=== PATIENT | female | born 1955 | race Caucasian/White ===

== ENCOUNTER → 2016-05-18 | Outpatient (CLI) | payer OTHER ==
--- NOTE | 2016-05-18 09:49 | BD ---
EXAMINATION TYPE: MG DEXA axial skeleton. DATE OF EXAM: 05/18/2016 8:38 AM CLINICAL HISTORY: Height: 63.5 Weight: 145 FRAX RISK QUESTIONS: Alcohol (3 or more units per day): no Family History (Parent hip fracture): no Glucocorticoids (More than 3mos): no (Ex: prednisone, prednisolone, methylprednisolone, dexamethasone, and hydrocortisone). History of Fracture in Adulthood: no Secondary Osteoporosis: 1. Type 1 Diabetes: no 2. Hyperthyroidism: no 3. Menopause before 45: no 4. Malnutrition: no 5. Chronic liver disease: no Rheumatoid Arthritis: no Current Tobacco Use: yes RISK FACTORS HISTORY OF: History of Fracture: no Family History of Osteoporosis: unsure Drink Alcohol: socially Active: yes Diet low in dairy products/other sources of calcium: no Postmenopausal woman: yes Take estrogen and/or progesterone medications: no Lost more than 2 inches in height since high school: no Hyperparathyroidism: no Adrenal Insufficiency: no MEDICATIONS: Prednisone or other steroids: no Thyroid Medications: no Osteoporosis Medications: no EXAM MEASUREMENTS: Bone mineral densitometry was performed using the Fosub[employer] System. Bone mineral density as measured about the Lumbar spine is: ----- L1-L4(G/cm2): 0.977 T Score Values are as follows: ----- L2: -2.5 ----- L3: -1.0 ----- L4: -1.7 ----- L1-L4: -1.7 Bone mineral density not previously done at this facility Bone mineral density about the R hip (g/cm2): 0.769 Bone mineral density about the L hip (g/cm2): 0.779 T Score values are as follows: -----R Neck: -1.9 -----L Neck: -1.9 -----R Intertrochanter: -1.6 -----L Intertrochanter: -1.5 Bone mineral density not previously done at this facility IMPRESSION: Normal (Values between +1 and -1 indicate normal bone mass) L3 Osteopenia (T Score between -2.5 and -1 as noted by T score values L2, L4 & Bilateral Hips There is slightly increased risk of fracture and the patient may be considered for treatment. Re-Screen 1-2 years. NOTE: T-SCORE=SD OF THE YOUNG ADULT MEAN.
--- NOTE | 2016-05-24 09:51 | MM ---
Reason for exam: screening (asymptomatic). Last mammogram was performed 1 year and 2 months ago. History: Patient is postmenopausal and history of other cancer. Benign excisional biopsy of the right breast, 2014. Physical Findings: A clinical breast exam by your physician is recommended on an annual basis and results should be correlated with mammographic findings. MG Screening Mammo w CAD Bilateral CC and MLO view(s) were taken. Prior study comparison: March 04, 2015, mammogram, performed at [facility]. There are scattered fibroglandular densities. There is no discrete abnormality. No significant changes when compared with prior studies. ASSESSMENT: Negative, BI-RAD 1 RECOMMENDATION: Routine screening mammogram of both breasts in 1 year.
== END | disposition home or self-care (01) ==
LOC: RADMAMWWP 07:57
PROVIDERS: ATTEND Family Medicine
DX: Z12.31 Encounter for screening mammogram for malignant neoplasm of breast (principal); M85.852 Other specified disorders of bone density and structure, left thigh; M85.851 Other specified disorders of bone density and structure, right thigh; M85.88 Other specified disorders of bone density and structure, other site
CPT/HCPCS: 77080; G0202

== ENCOUNTER → 2016-07-05 | Outpatient (CLI) | payer OTHER ==
[2016-07-05 17:16] LABS: Blood Urea Nitrogen 14 mg/dL (7-17); Non-African American GFR(MDRD) 54 (>60 ml/min/1.73 sqM)
--- NOTE | 2016-07-06 09:18 | CT ---
EXAMINATION TYPE: CT ChestAbdPelvis w con DATE OF EXAM: 07/05/2016 6:45 PM INDICATION: Recent diagnosis of bladder cancer. COMPARISON: 03/29/2016 CT DLP: 1852.00 mGycm CONTRAST: Performed with Oral Contrast and with IV Contrast, patient injected with 80 mL of Visipaque 320. TECHNIQUE: Axial images at 5 mm thick sections. Reconstructed images in the coronal plane. Delayed images through the kidneys. FINDINGS: CT CHEST: Portion of the thyroid visualized is normal. No suspicious lung nodules or focal infiltrates are present. No enlarged mediastinal or hilar adenopathy is evident. The ascending aorta diameter at the level of the main pulmonary artery is 3.0 cm. The main pulmonary artery diameter at the bifurcation is 2.[address] ABDOMEN: Liver: Normal Spleen: Normal Pancreas: Atrophic. Adrenal glands: The adrenal glands are normal. Gallbladder: Normal . The common bile duct is dilated at 1.1 cm. Normal is less than 0.6 cm. No susp icious abnormality at the head of the pancreas is identified. Consider additional evaluation with ult rasound with attention to the head of the pancreas and the gallbladder. Kidneys: No masses are evident. No hydronephrosis is present. No cysts are present. Aorta: Vascular calcification is within the aorta. Inferior vena cava: Normal. CT PELVIS: Loops of bowel within the abdomen and pelvis are normal. There are loops of bowel which are incom pletely distended or lack oral contrast limiting their evaluation. Appendix: Not visualized Urinary bladder: Decompressed. There is irregular wall thickening. Small amount of free air is presen t within urinary bladder. Findings can be compatible with the patient's reported urinary bladder can er. Genitourinary structures: Uterus is normal. Adnexal regions are unremarkable. Osseous structures: No suspicious lytic or sclerotic lesions. IMPRESSIONS: 1. Irregular urinary bladder compatible with the patient's reported bladder cancer. 2. There is a dilated common bile duct 1.1 cm. Consider ultrasound for additional evaluation.
== END | disposition home or self-care (01) ==
LOC: RADCTMAIN 16:39
PROVIDERS: ATTEND Urology
DX: C67.9 Malignant neoplasm of bladder, unspecified (principal)
CPT/HCPCS: 82565; 84520; 71260; 74177; 36415; Q9967

== ENCOUNTER → 2016-07-12 | Outpatient (CLI) | payer OTHER ==
--- NOTE | 2016-07-12 15:08 | US ---
EXAMINATION TYPE: US abdomen limited DATE OF EXAM: 07/12/2016 2:56 PM COMPARISON: CT cap July 05, 2016 CLINICAL HISTORY: 10.11 RUQ Pain R10.2Pelvic Pain,K85.90 Pancreatitis. Abdominal pain, getting worse, history of bladder cancer EXAM MEASUREMENTS: Liver Length: 13.3 cm Gallbladder Wall: 0.3 cm CBD: 0.8 cm Right Kidney: 9.9 x 4.3 x 4.1 cm TECHNOLOGIST IMPRESSION: Pancreas: limited evaluation due to overlying bowel content Liver: small cystic areas noted, largest = 0.6cm Gallbladder: sludge with possible tiny stones Evidence for sonographic Finnegan's sign: Yes CBD: dilated Right Kidney: echogenic, somewhat lobulated, limited evaluation of lower pole due to overlying bowel Visualized pancreas is unremarkable but distal body and tail are obscured by overlying bowel gas. Natalia er is heterogeneous suggesting mild diffuse fatty infiltration. A 5 mm simple appearing thin-walled c yst is marked by technologist. Gallbladder is seen with multiple low lying echoes consistent with gal lbladder sludge or small stones. No pericholecystic fluid or abnormal gallbladder wall thickening is identified. Sonographic Finnegan's sign however is positive. Common bile duct is mildly dilated for pat ient's age. IMPRESSION: Diffuse gallbladder sludge without convincing ultrasound evidence for acute cholecystitis . However in patient with pain and positive sonographic Finnegan's sign it is not entirely excluded. Co nsider HIDA scan follow-up.
== END | disposition home or self-care (01) ==
LOC: RADUSWWP 14:29
PROVIDERS: ATTEND Family Medicine
DX: K83.9 Disease of biliary tract, unspecified (principal); K85.90 Acute pancreatitis without necrosis or infection, unspecified; R10.2 Pelvic and perineal pain
CPT/HCPCS: 76705

== ENCOUNTER 2016-07-26 06:26 | Observation (INO) | payer OTHER ==
[2016-07-23 08:36] VITALS: BMI 23.0
[~2016-07-26 06:26] MED LIST: DEXAMETHASONE SOD PHOSPHATE 10 MG/ML 1 ML VIAL IV ONE; HEPARIN SODIUM,PORCINE 5,000 UNIT/ML 1 ML VIAL SQ ONE; LIDOCAINE 1% 20 ML VIAL (10MG/ML) FOR IV START INTRADERMA PRN; MIDAZOLAM 2 MG/2 ML VIAL IV PRN; ONDANSETRON 4 MG/2 ML VIAL IVP ONE; SCOPOLAMINE 1.5MG/72HR PATCH TRANSDERM ONE; ceFAZolin 2 GM in SODIUM CHLORIDE 0.9% 100 ML IVPB ONE
[2016-07-26] MEDS ORDERED: LACTATED RINGERS 1,000 ML IV ONE ×3 (06:51→08:49)
--- NOTE | 2016-07-26 07:38 | P.GSHP ---
History of Present Illness H&P Date: 07/26/16 Chief Complaint: Right upper quadrant pain This a 7-year-old female who's had complaints of right upper quadrant pain. Her recent ultrasound shows evidence of sludge and gallstones. She presents today for laparoscopic cholecystectomy. Past Medical History Past Medical History: Cancer, Osteoarthritis (OA) Additional Past Medical History / Comment(s): NEW DX BLADDER CANCER, STATES RIGHT SHOULDER PAIN, BLADDER PAIN AND GALL BLADDER PAIN . History of Any Multi-Drug Resistant Organisms: None Reported Past Surgical History: Appendectomy, Orthopedic Surgery, Tonsillectomy, Tubal Ligation, Uterine Ablation Additional Past Surgical History / Comment(s): RIGHT SHOULDER SURGERY X7., GROWTH IN BLADDER REMOVED (JUNE 28, 2016) Past Anesthesia/Blood Transfusion Reactions: No Reported Reaction Past Psychological History: No Psychological Hx Reported Smoking Status: Current every day smoker Past Alcohol Use History: Occasional Additional Past Alcohol Use History / Comment(s): SMOKES 1 PPD. SMOKING SINCE 17 YRS OLD. (APPROX 45 YEARS) Past Drug Use History: None Reported - Past Family History Mother Family Medical History: Deep Vein Thrombosis (DVT) Sister(s) Family Medical History: Deep Vein Thrombosis (DVT) Medications and Allergies Home Medications Medication Instructions Recorded Confirmed Type Ascorbic Acid [Vitamin C] 1,000 mg PO DAILY 07/23/16 07/23/16 History Calcium Carbonate [Calcium] 600 mg PO DAILY 07/23/16 07/23/16 History HYDROcodone/APAP 10-325MG [[place] 1 tab PO Q6H PRN 07/23/16 07/26/16 History 10-325] Ibuprofen [Motrin] 200 - 400 mg PO Q6HR PRN 07/23/16 07/23/16 History Allergies Allergy/AdvReac Type Severity Reaction Status Date / Time No Known Allergies Allergy Unverified 07/23/16 08:22 Surgical - Exam Vital Signs Temp Pulse Resp BP Pulse Ox 98.0 F 100 18 127/81 98 07/26/16 06:38 07/26/16 06:38 07/26/16 06:38 07/26/16 06:38 07/26/16 06:38 - General well developed, no distress - Eyes PERRL - ENT normal pinna - Neck no masses - Respiratory normal expansion - Cardiovascular Rhythm: regular - Abdomen Abdomen: soft, non tender Assessment and Plan Plan: Cholelithiasis Chronic cholecystitis We'll perform laparoscopic cholecystectomy
[2016-07-26] MEDS ORDERED: GLYCOPYRROLATE 0.2 MG/ML 2 ML VIAL ONE (07:42)
[2016-07-26] MEDS ORDERED: MIDAZOLAM 2 MG/2 ML VIAL ONE (07:42)
[2016-07-26] MEDS ORDERED: SUCCINYLCHOLINE CHLORIDE 100 MG/5 ML SYR IV ONE (07:42)
[2016-07-26] MEDS ORDERED: ROCURONIUM BROMIDE 10 MG/ML 10 ML VIAL IV ONE (07:42)
[2016-07-26] MEDS ORDERED: fentaNYL (PF) 50 MCG/ML 2 ML AMP ONE (07:42)
[2016-07-26] MEDS ORDERED: NEOSTIGMINE 1 MG/ML 10 ML VIAL ONE (07:42)
[2016-07-26] MEDS ORDERED: LIDOCAINE 1% INJ 10MG/ML (20 ML MDV) ONE (07:42)
[2016-07-26] MEDS ORDERED: PROPOFOL 10 MG/ML 20 ML VIAL IV ONE (07:42)
[2016-07-26] MEDS ORDERED: BUPIVACAIN-EPI 0.25%-1:200,000 30 ML VIAL SQ ONE (08:06)
[2016-07-26] MEDS ORDERED: NALOXONE 0.4 MG/ML 1 ML VIAL IV PRN (08:49)
[2016-07-26] MEDS ORDERED: HYDROmorphone 1 MG/ML 1 ML SYRINGE IVP PRN (08:49)
--- NOTE | 2016-07-26 08:49 | P.OP ---
Date of Procedure: 07/26/16 Preoperative Diagnosis: Cholecystitis Cholelithiasis Postoperative Diagnosis: Cholecystitis Cholelithiasis Peritoneal nodule Procedure(s) Performed: Laparoscopic cholecystectomy Peritoneal biopsy Anesthesia: BEATRICE Surgeon: Gonzales Crawford Estimated Blood Loss (ml): 5 Pathology: other (Gallbladder) Condition: stable Disposition: PACU Description of Procedure: The patient was placed on the operating table. The patient received a general endotracheal tube anesthesia. The patients abdomen was prepped and draped in the usual sterile fashion. Through an infraumbilical stab incision, the fascia of the anterior abdominal wall was grasped with a pair of Kochers and then the Veress needle was placed in the peritoneal cavity. Position of the Veress needle was confirmed with positive drop test. The abdomen was then insufflated. After adequate insufflation, the 10 mm trocar was placed in the peritoneal cavity. Following this the laparoscope was placed in the peritoneal cavity. The patient was placed in the head-up, right side up position and then a 5 mm trocar was placed in the right lateral and right subcostal position under direct visualization. A 8 mm trocar was placed in the epigastric position. There is noted to have some ascites in the perineal cavity. The gallbladder was grasped in the fundus and infundibulum. Traction on the gallbladder was placed in the lateral and the cephalad positions. The triangle of Calot was visualized.. The cystic duct was bluntly dissected until the union of the cystic duct and common bile duct was seen. The cystic duct was then divided and sealed with the Harmonic scissors. A PDS Endoloop was then placed throughout the cystic duct stump. The cystic artery divided and sealed with the Harmonic scissors. The gallbladder was then removed from the liver bed using Harmonic scissors. The gallbladder was then extracted through the epigastric port site. Operative field was checked for any bleeding spots and Harmonic scissors was used to coagulate the liver bed. The abdomen was irrigated. The peritoneum was examined. There appeared to be some nodular change the peritoneum nodules were weight in color. A peritoneal biopsies performed in the right lateral area. The Bovie was used for hemostasis. The trocars were removed. The skin was closed using interrupted 3- 0 Vicryl suture. Dermabond dressing were applied. The patient tolerated the procedure well.
[2016-07-26] MEDS: HYDROmorphone 1 MG/ML 1 ML SYRINGE IVP PRN ×4 (08:58→19:20)
[2016-07-26] MEDS: LACTATED RINGERS 1,000 ML IV SCH ×2 (09:54→10:08)
[2016-07-26] MEDS: ONDANSETRON 4 MG/2 ML VIAL IVP PRN ×2 (10:57→19:19)
[2016-07-26 20:37] VITALS: RESP 16
[2016-07-26] MEDS: HYDROcodone/APAP 5-325MG 1 EACH TAB PO PRN (21:31)
[2016-07-27] MEDS: HYDROmorphone 1 MG/ML 1 ML SYRINGE IVP PRN ×2 (00:03→05:31)
[2016-07-27] MEDS: HYDROcodone/APAP 5-325MG 1 EACH TAB PO PRN ×2 (03:13→09:17)
[2016-07-27] MEDS: ONDANSETRON 4 MG/2 ML VIAL IVP PRN (05:33)
[2016-07-27 12:40] VITALS: BP 148/78; PULSE 111; TEMP 98.2
--- NOTE | 2016-07-27 13:27 | P.DS ---
Providers Date of admission: 07/26/16 19:37 Expected date of discharge: 07/27/16 Attending physician: Gonzales Crawford Primary care physician: [facility] Hospital Course: This a 61-year-old lady with multiple medical problems who underwent laparoscopic cholecystectomy on 07/26. Patient was placed in observation postoperatively. Patient did well postoperative. Please see hospital chart for details. Procedures: Laparoscopic cholecystectomy Patient Condition at Discharge: Good Plan - Discharge Summary New Discharge Prescriptions: HYDROcodone/APAP 7.5-325MG [[place] 7.5] 1 each PO Q4H PRN #60 tab PRN Reason: Pain Discharge Medication List Ascorbic Acid [Vitamin C] 1,000 mg PO DAILY 07/23/16 [History] Calcium Carbonate [Calcium] 600 mg PO DAILY 07/23/16 [History] HYDROcodone/APAP 10-325MG [[place] 10-325] 1 tab PO Q6H PRN 07/23/16 [History] Ibuprofen [Motrin] 200 - 400 mg PO Q6HR PRN 07/23/16 [History] HYDROcodone/APAP 7.5-325MG [[place] 7.5] 1 each PO Q4H PRN #60 tab 07/27/16 [Rx] Follow up Appointment(s)/Referral(s): Gonzales Crawford MD [STAFF PHYSICIAN] - 1 Week
== END 2016-07-27 14:22 | disposition home or self-care (01) ==
LOC: OR 06:26 → 3OBS 08:47 → OR 19:37
PROVIDERS: ADMIT Surgery; ATTEND Surgery
DX: K80.10 Calculus of gallbladder with chronic cholecystitis without obstruction (principal); F17.200 Nicotine dependence, unspecified, uncomplicated; C67.9 Malignant neoplasm of bladder, unspecified; M25.511 Pain in right shoulder; M19.90 Unspecified osteoarthritis, unspecified site
CPT/HCPCS: 88304; 88342; 88341; 88305; 47562; G0378 ×2; J2250; J1644; J1100; J2710; J0690; J2405 ×2; J2001; J3010; J1170 ×2; J0330; J2704; 96374; 96375; 96376

== ENCOUNTER 2016-08-02 13:03 | Inpatient (IN) | payer OTHER ==
--- NOTE | 2016-08-02 12:50 | XR ---
EXAMINATION TYPE: XR abdomen 2V DATE OF EXAM: 08/02/2016 12:44 PM COMPARISON: NONE HISTORY: Pain and abdominal distention TECHNIQUE: One view abdominal series FINDINGS: The osseous structures are intact. The bowel gas pattern is nonspecific. There are numerous dilated small bowel loops are seen. Numerous air-fluid levels are seen. Curvature the spine with hypertrophic changes noted. Mild diffuse osteopenia. Subsegmental changes are seen at both lung bases. IMPRESSION: 1. Nonspecific abdomen. Findings are suggestive of small bowel obstruction. A Red message has been communicated to Hawk Barnett DO via the [employer] Result system on 08/02/2016 12:48 PM, Message ID [id number].
[2016-08-02] MEDS ORDERED: PROMETHAZINE INJ 6.25 MG in SODIUM CHLORIDE 0.9% 50 ML IVPB STA (13:30)
[2016-08-02] MEDS ORDERED: HYDROmorphone 1 MG/ML 1 ML SYRINGE IVP STA ×3 (13:30→18:20)
[2016-08-02] MEDS ORDERED: PANTOPRAZOLE 40 MG/10 ML VIAL IVP STA (13:30)
[2016-08-02] MEDS ORDERED: SODIUM CHLORIDE 0.9% 1,000 ML IV STA ×2 (13:30)
--- NOTE | 2016-08-02 13:43 | ED ---
General Adult HPI - General Chief complaint: Abdominal Pain Source: patient, RN notes reviewed, old records reviewed Mode of arrival: wheelchair - History of Present Illness Initial comments: Chief complaint and history of present illness is a 61-year-old female with complaint of abdominal pain. The patient reports that she had a cholecystectomy performed laparoscopically 7 days ago. During that time the patient reports she's had very rare infrequent bowel movements. She gave herself an enema 3 days ago with no results. She last passed gas 3 days ago. Patient reports she vomited today and she said it looked like stool contents. - Related Data Home Medications Medication Instructions Recorded Confirmed Calcium Carbonate [Calcium] 1,200 mg PO DAILY 07/23/16 08/02/16 HYDROcodone/APAP 10-325MG [[place] 1 tab PO QID PRN 07/23/16 08/02/16 10-325] Ibuprofen [Motrin] 800 mg PO BID PRN 08/02/16 08/02/16 Allergies Allergy/AdvReac Type Severity Reaction Status Date / Time No Known Allergies Allergy Verified 08/02/16 15:26 Review of Systems ROS Statement: Those systems with pertinent positive or pertinent negative responses have been documented in the HPI. Review of systems no headache or visual acuity changes no stiff neck no chest pain or shortness of breath. The patient significantly bloated and tympanitic. With hypoactive bowel sounds. She vomited once today saying it tasted like and look like stool. She reports no flatus for the past 2-1/2 or 3 days. 3 days ago she gave herself a fleets enema without any results. She's only had 2 small BMs which is not typical for her. Decreased appetite. Denies fever. No neuro deficits. All systems reviewed. Past medical history significant for bladder cancer diagnosed just one month ago. Scheduled to go to [facility] for removal of the bladder. Also history of osteoarthritis. Past surgeries also include rotator cuff on the right shoulder. Appendectomy, tonsillectomy, tubal ligation and uterine ablation. Total number surgeries on the right shoulder 7. Patient denies any cancer in the family. Patient denies any ALLERGIES. She quit smoking 10 days ago. Drink alcohol socially. ROS Other: All systems not noted in ROS Statement are negative. Past Medical History Past Medical History: Cancer, Osteoarthritis (OA) Additional Past Medical History / Comment(s): NEW DX BLADDER CANCER, STATES RIGHT SHOULDER PAIN, BLADDER PAIN AND GALL BLADDER PAIN . History of Any Multi-Drug Resistant Organisms: None Reported Past Surgical History: Appendectomy, Orthopedic Surgery, Tonsillectomy, Tubal Ligation, Uterine Ablation Additional Past Surgical History / Comment(s): RIGHT SHOULDER SURGERY X7., GROWTH IN BLADDER REMOVED (JUNE 28, 2016), Past Anesthesia/Blood Transfusion Reactions: No Reported Reaction Past Psychological History: No Psychological Hx Reported Smoking Status: Former smoker Past Alcohol Use History: Occasional Additional Past Alcohol Use History / Comment(s): SMOKES 1 PPD. SMOKING SINCE 17 YRS OLD. (APPROX 45 YEARS) Past Drug Use History: None Reported - Past Family History Mother Family Medical History: Deep Vein Thrombosis (DVT) Sister(s) Family Medical History: Deep Vein Thrombosis (DVT) General Exam - General Exam Comments Initial Comments: General: The patient is awake and alert, complaining of abdominal bloating feeling. Nausea vomiting this morning. Two-view x-ray of the abdomen was done this morning as ordered by the family doctor's office is suggestive for small bowel obstruction, as reported by Dr. Nicole. Vital signs show temperature 99.2 pulse 131 respiratory rate 18 pulse ox 90% on room air. Blood pressure 120/70 Eye: Pupils are equal, round and reactive to light, extra-ocular movements are intact ; there is normal conjunctiva bilaterally. No signs of icterus. Ears, nose, mouth and throat: There are moist mucous membranes and no oral lesions. Neck: The neck is supple, there is no tenderness . Cardiovascular: Tachycardic heart rate 1:30. No murmur, rub or gallop is appreciated. Respiratory: Lungs are clear to auscultation, respirations are non-labored, breath sounds are equal. No wheezes, stridor, rales, or rhonchi. Gastrointestinal: Abdomen bloated, tympanitic. Tender to palpation. Positive pain and referred pain and rebound. Trocar surgical sites appear healing. Recent cholecystectomy , 7 days ago. Back: There is no tenderness to palpation in the midline. There is no obvious deformity. No rashes noted. Musculoskeletal: Normal ROM, no tenderness, There is no pedal edema. There is no calf tenderness or swelling. Sensation intact. Area Neurological: No neuro deficits Skin: Skin is warm and dry and no rashes or lesions are noted. Course Vital Signs 08/02/16 08/02/16 08/02/16 13:05 15:00 16:20 Temperature 99.2 F Pulse Rate 131 H 118 H 115 H Respiratory 18 16 16 Rate Blood Pressure 120/70 128/74 132/71 O2 Sat by Pulse 92 L 95 96 Oximetry 08/02/16 08/02/16 17:10 17:59 Temperature Pulse Rate 117 H 120 H Respiratory 16 16 Rate Blood Pressure 123/70 121/73 O2 Sat by Pulse 95 93 L Oximetry EKG Findings - EKG Comments: EKG Findings:: EKG was done and reviewed at 1501 showing sinus tachycardia rate 116. No acute ST elevation no ectopy no ischemic changes appreciated. VA was 128 QRS 84 QT [address] Keyes Medical Decision Making - Medical Decision Making Medical decision making. After examination I spoke with the patient's surgeon, Dr. dr art. Reports of physical findings and the two-view x-rays were reported to him. At this time patient will have an NG tube placed and oral contrast CT will be requested. Patient be rehydrated and if she has no elevated white count he wants antibiotic started. Labs show white count of 18.8 hemoglobin 11.6 hematocrit of 39. Platelets are elevated 801. INR 1.9, potassium 4.4 with a BUN 29 creatinine 0.5 to the GFR greater than 60. Urine shows 123 whites 16 reds. Urine culture pending. NG tube was removing black stomach contents. Gastro-cult pending. Gastroccult positive CT report of the abdomen is final impression is distal small bowel obstruction is confirmed with internal hernia at the level of the pelvis as etiologies difficult to exclude. Small to moderate amount of abdominal fluid or ascites is of uncertain etiology. As reported by Dr. garay The results were called to Dr. dr art. Labs, physical findings, CT and x- ray all reviewed. The patient has been started on Zosyn. He wants the patient to be kept nothing by mouth, continue on NG tube intermittent suction. Protonix , antibiotics as directed. - Lab Data Result diagrams: 08/02/16 13:50 08/02/16 13:50 Lab Results 08/02/16 08/02/16 08/02/16 Range/Units 13:50 13:50 13:50 WBC 18.8 H (3.8-10.6) k/uL RBC 3.96 (3.80-5.40) m/uL Hgb 11.6 (11.4-16.0) gm/dL Hct 39.1 (34.0-46.0) % MCV 98.8 (80.0-100.0) fL MCH 29.4 (25.0-35.0) pg MCHC 29.7 L (31.0-37.0) g/dL RDW 13.7 (11.5-15.5) % Plt Count 801 H* (150-450) k/uL Neutrophils % (Manual) 82.0 % Lymphocytes % (Manual) 13.0 % Monocytes % (Manual) 5.0 % Neutrophils # (Manual) 15.4 H (1.3-7.7) k/uL Lymphocytes # (Manual) 2.4 (1.0-4.8) k/uL Monocytes # (Manual) 0.9 (0-1.0) k/uL Nucleated RBCs 0 (0-0) /100 WBC Manual Slide Review Performed Polychromasia Present Hypochromasia Slight Target Cells Present PT 17.9 H (9.0-12.0) sec INR 1.9 (<1.1) APTT 33.0 H (22.0-30.0) sec Sodium 132 L (137-145) mmol/L Potassium 4.4 (3.5-5.1) mmol/L Chloride 85 L (98-107) mmol/L Carbon Dioxide 29 (22-30) mmol/L Anion Gap 18 mmol/L BUN 29 H (7-17) mg/dL Creatinine 0.52 (0.52-1.04) mg/dL Est GFR (MDRD) Af Amer >60 (>60 ml/min/1.73 sqM) Est GFR (MDRD) Non-Af >60 (>60 ml/min/1.73 sqM) Glucose 95 (74-99) mg/dL Plasma Lactic Acid Wagner (0.7-2.0) mmol/L Calcium 7.9 L (8.4-10.2) mg/dL Total Bilirubin 1.1 (0.2-1.3) mg/dL AST 28 (14-36) U/L ALT 25 (9-52) U/L Alkaline Phosphatase 118 (38-126) U/L Troponin I (0.000-0.034) ng/mL Total Protein 5.8 L (6.3-8.2) g/dL Albumin 2.8 L (3.5-5.0) g/dL Amylase <30 L (30-110) U/L Lipase <10 L (23-300) U/L Urine Color Urine Appearance (Clear) Urine pH (5.0-8.0) Ur Specific [place] (1.001-1.035) Urine Protein (Negative) Urine Glucose (UA) (Negative) Urine Ketones (Negative) Urine Blood (Negative) Urine Nitrite (Negative) Urine Bilirubin (Negative) Urine Urobilinogen (<2.0) mg/dL Ur Leukocyte Esterase (Negative) Urine RBC (0-5) /hpf Urine WBC (0-5) /hpf Ur Squamous Epith Cells (0-4) /hpf Urine Bacteria (None) /hpf Hyaline Casts (0-2) /lpf Urine Mucus (None) /hpf Urine Yeast (Budding) (None) /hpf Gastric Occult Blood (Negative) 08/02/16 08/02/16 08/02/16 Range/Units 13:50 13:50 15:00 WBC (3.8-10.6) k/uL RBC (3.80-5.40) m/uL Hgb (11.4-16.0) gm/dL Hct (34.0-46.0) % MCV (80.0-100.0) fL MCH (25.0-35.0) pg MCHC (31.0-37.0) g/dL RDW (11.5-15.5) % Plt Count (150-450) k/uL Neutrophils % (Manual) % Lymphocytes % (Manual) % Monocytes % (Manual) % Neutrophils # (Manual) (1.3-7.7) k/uL Lymphocytes # (Manual) (1.0-4.8) k/uL Monocytes # (Manual) (0-1.0) k/uL Nucleated RBCs (0-0) /100 WBC Manual Slide Review Polychromasia Hypochromasia Target Cells PT (9.0-12.0) sec INR (<1.1) APTT (22.0-30.0) sec Sodium (137-145) mmol/L Potassium (3.5-5.1) mmol/L Chloride (98-107) mmol/L Carbon Dioxide (22-30) mmol/L Anion Gap mmol/L BUN (7-17) mg/dL Creatinine (0.52-1.04) mg/dL Est GFR (MDRD) Af Amer (>60 ml/min/1.73 sqM) Est GFR (MDRD) Non-Af (>60 ml/min/1.73 sqM) Glucose (74-99) mg/dL Plasma Lactic Acid Wagner (0.7-2.0) mmol/L Calcium (8.4-10.2) mg/dL Total Bilirubin (0.2-1.3) mg/dL AST (14-36) U/L ALT (9-52) U/L Alkaline Phosphatase (38-126) U/L Troponin I <0.012 (0.000-0.034) ng/mL Total Protein (6.3-8.2) g/dL Albumin (3.5-5.0) g/dL Amylase (30-110) U/L Lipase (23-300) U/L Urine Color Dark Yellow Urine Appearance Cloudy H (Clear) Urine pH 5.5 (5.0-8.0) Ur Specific [place] 1.020 (1.001-1.035) Urine Protein 1+ H (Negative) Urine Glucose (UA) Negative (Negative) Urine Ketones 2+ H (Negative) Urine Blood Moderate H (Negative) Urine Nitrite Negative (Negative) Urine Bilirubin 1+ H (Negative) Urine Urobilinogen <2.0 (<2.0) mg/dL Ur Leukocyte Esterase Large H (Negative) Urine RBC 16 H (0-5) /hpf Urine WBC 123 H (0-5) /hpf Ur Squamous Epith Cells 4 (0-4) /hpf Urine Bacteria Rare H (None) /hpf Hyaline Casts 3 H (0-2) /lpf Urine Mucus Rare H (None) /hpf Urine Yeast (Budding) Few H (None) /hpf Gastric Occult Blood Positive (Negative) 08/02/16 Range/Units 15:29 WBC (3.8-10.6) k/uL RBC (3.80-5.40) m/uL Hgb (11.4-16.0) gm/dL Hct (34.0-46.0) % MCV (80.0-100.0) fL MCH (25.0-35.0) pg MCHC (31.0-37.0) g/dL RDW (11.5-15.5) % Plt Count (150-450) k/uL Neutrophils % (Manual) % Lymphocytes % (Manual) % Monocytes % (Manual) % Neutrophils # (Manual) (1.3-7.7) k/uL Lymphocytes # (Manual) (1.0-4.8) k/uL Monocytes # (Manual) (0-1.0) k/uL Nucleated RBCs (0-0) /100 WBC Manual Slide Review Polychromasia Hypochromasia Target Cells PT (9.0-12.0) sec INR (<1.1) APTT (22.0-30.0) sec Sodium (137-145) mmol/L Potassium (3.5-5.1) mmol/L Chloride (98-107) mmol/L Carbon Dioxide (22-30) mmol/L Anion Gap mmol/L BUN (7-17) mg/dL Creatinine (0.52-1.04) mg/dL Est GFR (MDRD) Af Amer (>60 ml/min/1.73 sqM) Est GFR (MDRD) Non-Af (>60 ml/min/1.73 sqM) Glucose (74-99) mg/dL Plasma Lactic Acid Wagner 1.4 (0.7-2.0) mmol/L Calcium (8.4-10.2) mg/dL Total Bilirubin (0.2-1.3) mg/dL AST (14-36) U/L ALT (9-52) U/L Alkaline Phosphatase (38-126) U/L Troponin I (0.000-0.034) ng/mL Total Protein (6.3-8.2) g/dL Albumin (3.5-5.0) g/dL Amylase (30-110) U/L Lipase (23-300) U/L Urine Color Urine Appearance (Clear) Urine pH (5.0-8.0) Ur Specific [place] (1.001-1.035) Urine Protein (Negative) Urine Glucose (UA) (Negative) Urine Ketones (Negative) Urine Blood (Negative) Urine Nitrite (Negative) Urine Bilirubin (Negative) Urine Urobilinogen (<2.0) mg/dL Ur Leukocyte Esterase (Negative) Urine RBC (0-5) /hpf Urine WBC (0-5) /hpf Ur Squamous Epith Cells (0-4) /hpf Urine Bacteria (None) /hpf Hyaline Casts (0-2) /lpf Urine Mucus (None) /hpf Urine Yeast (Budding) (None) /hpf Gastric Occult Blood (Negative) Disposition Clinical Impression: Small bowel obstruction, Urinary tract infection, GI bleed Disposition: ADMITTED IP TO THIS HOSP Condition: Serious
[2016-08-02 14:39] LABS: INR 1.9 (<1.1); Prothrombin Time 17.9 sec (9.0-12.0)
[2016-08-02 14:41] LABS: Amylase <30 U/L (30-110); CH 30.3; CHCM 30.8; Chloride 85 mmol/L (98-107); Glucose 95 mg/dL (74-99); HCT 39.1 % (34.0-46.0); HDW 2.64; HGB 11.6 gm/dL (11.4-16.0); Hypochromasia Slight; MCH 29.4 pg (25.0-35.0); MCHC 29.7 g/dL (31.0-37.0); MCV 98.8 fL (80.0-100.0); Mean Platelet Volume 7.1; RBC 3.96 m/uL (3.80-5.40); RDW 13.7 % (11.5-15.5); Total Protein 5.8 g/dL (6.3-8.2); WBC 18.8 k/uL (3.8-10.6); WBC (Perox) 19.83
[2016-08-02 14:42] LABS: Anion Gap 18 mmol/L; Calcium 7.9 mg/dL (8.4-10.2); Carbon Dioxide 29 mmol/L (22-30); Non-African American GFR(MDRD) >60 (>60 ml/min/1.73 sqM); Sodium 132 mmol/L (137-145); Total Bilirubin 1.1 mg/dL (0.2-1.3)
[2016-08-02 14:49] LABS: Potassium 4.4 mmol/L (3.5-5.1)
[2016-08-02 14:50] LABS: AST 28 U/L (14-36); Blood Urea Nitrogen 29 mg/dL (7-17)
[2016-08-02 14:51] LABS: ALT 25 U/L (9-52); Alkaline Phosphatase 118 U/L (38-126)
[2016-08-02 14:55] LABS: Appearance,Urine Cloudy (Clear); Bacteria,Urine Rare /hpf; Bilirubin,Urine 1+ (Negative); Glucose,Urine (UA) Negative (Negative); Ketones,Urine 2+ (Negative); Leukocyte Esterase,Urine Large (Negative); Mucus,Urine Rare /hpf; Nitrite,Urine Negative (Negative); PH, Urine 5.5 (5.0-8.0); Particle Count 15818; Protein,Urine 1+ (Negative); RBC,Urine 16 /hpf (0-5); Squamous Epithelial Cell,Urine 4 /hpf (0-4); UA Billing (MACRO vs. MICRO) MICRO; Urobilinogen,Urine <2.0 mg/dL (<2.0); WBC,Urine 123 /hpf (0-5)
[2016-08-02] MEDS ORDERED: PIPERACILLIN-TAZOBACTAM 3.375 GM in DEXTROSE/WATER 1 50ML.BAG IVPB STA (15:17)
[2016-08-02 15:19] LABS: Add Differential Manual Differential
[2016-08-02 15:22] LABS: Manual Review Performed; Nucleated Red Blood Cells 0 /100 WBC (0-0); Total Cells Counted 100
[2016-08-02 15:24] LABS: Target Cells Present
[2016-08-02 15:26] LABS: Polychromasia Present
[2016-08-02] MEDS ORDERED: IOHEXOL 350 MG/ML 25 ML BOTTLE (ORAL USE) PO PRN (15:50)
--- NOTE | 2016-08-02 18:17 | CT ---
EXAMINATION TYPE: CT abdomen pelvis wo con DATE OF EXAM: 08/02/2016 5:50 PM HISTORY: Abdominal pain with nausea and vomiting for 3-[address] DLP: 319.2 mGycm. Automated Exposure Control for Dose Reduction was Utilized. TECHNIQUE: CT scan of the abdomen and pelvis is performed with oral but without IV contrast. COMPARISON: CT cap July 05, 2016. FINDINGS: Within the limitations of a non-contrast study, the following observations are made. LUNG BASES: Some coronary artery calcification is present. LIVER/GB: Gallbladder is now not distinctly visualized, presumed interval cholecystectomy. Suspect morrissey rgical clips on axial image 26 PANCREAS: Generalized atrophy of pancreas is seen. SPLEEN: No significant abnormality is seen. ADRENALS: No significant abnormality is seen. KIDNEYS: Lobulated renal cortex bilaterally is redemonstrated. Bladder is better distended on current study. Partially calcified lesion superior to right of midline is felt present near axial image 72 a nd may reflect known neoplasm. BOWEL: There is now small to moderate size contrast filled hiatal hernia. Nasogastric tube in contras t filled slightly prominent stomach is noted. There is contrast-filled prominent first and second por tion of duodenum. There is nondilated third and fourth portion. There are dilated contrast-filled sma ll bowel loops throughout the abdomen with air-fluid levels. Bowel is dilated up to 4.0 cm on axial i mage 49. In the midline of the pelvis there is swirling of mesenteric vessels seen best on coronal im ages 38 through 56 in which internal hernia cannot be excluded. Less prominent small bowel loops are seen at this level. Evaluation of distal bowel is suboptimal due to lack of enteric contrast at this level. Fecal material is seen in nondistended colon along the periphery of the abdomen and pelvis. GENITAL ORGANS: No gross abnormality seen. LYMPH NODES: No greater than 1cm abdominal or pelvic lymph nodes are appreciated. OSSEOUS STRUCTURES: There is straightening of cervical spine with moderate to advanced disc space thee rowing L5-S1 level. OTHER: There are small to moderate amount of abdominal and pelvic ascites now present in new from talia or exam. IMPRESSION: Distal small bowel obstruction is confirmed with internal hernia at level of pelvis as et iology difficult to exclude. Small to moderate amount of abdominal fluid or ascites is of uncertain e tiology. Surgical consultation advised.
[2016-08-02] MEDS ORDERED: ONDANSETRON 4 MG/2 ML VIAL IVP PRN (18:41)
[2016-08-02] MEDS ORDERED: NALOXONE 0.4 MG/ML 1 ML VIAL IV PRN (18:41)
[2016-08-02] MEDS ORDERED: SODIUM CHLORIDE 0.9% 1,000 ML IV ONE (19:05)
[2016-08-02] MEDS: SODIUM CHLORIDE 0.9% 1,000 ML IV SCH (21:25)
[2016-08-02] MEDS: HYDROmorphone 1 MG/ML 1 ML SYRINGE IV PRN (21:42)
[2016-08-02] MEDS: PIPERACILLIN-TAZOBACTAM 3.375 GM in DEXTROSE/WATER 1 50ML.BAG IVPB SCH (23:41)
[2016-08-03] MEDS: HYDROmorphone 1 MG/ML 1 ML SYRINGE IV PRN ×3 (01:36→09:32)
[2016-08-03] MEDS: SODIUM CHLORIDE 0.9% 1,000 ML IV SCH ×2 (04:00→16:02)
[2016-08-03 06:15] LABS: Basophils # (A) 0.1 k/uL (0-0.2); Basophils % (A) 1 %; CH 29.2; CHCM 30.3; Eosinophils # (A) 0.1 k/uL (0-0.7); Eosinophils % (A) 0 %; HCT 34.8 % (34.0-46.0); HGB 11.1 gm/dL (11.4-16.0); Hypochromasia Moderate; Luc # (Auto) 0.49; Luc % (Auto) 3; Lymphocytes # (A) 2.1 k/uL (1.0-4.8); Lymphocytes % (A) 13 %; MCH 30.8 pg (25.0-35.0); MCHC 31.8 g/dL (31.0-37.0); MCV 96.8 fL (80.0-100.0); Mean Platelet Volume 6.6; Monocytes # (A) 0.8 k/uL (0-1.0); Monocytes % (A) 5 %; Neutrophils # (A) 12.3 k/uL (1.3-7.7); Neutrophils % (A) 78 %; RBC 3.59 m/uL (3.80-5.40); RDW 13.5 % (11.5-15.5); WBC 15.8 k/uL (3.8-10.6); WBC (Perox) 16.44
[2016-08-03 06:40] LABS: ALT 26 U/L (9-52); AST 18 U/L (14-36); Alkaline Phosphatase 95 U/L (38-126); Anion Gap 15 mmol/L; Blood Urea Nitrogen 23 mg/dL (7-17); Calcium 7.6 mg/dL (8.4-10.2); Carbon Dioxide 29 mmol/L (22-30); Chloride 89 mmol/L (98-107); Glucose 88 mg/dL (74-99); Non-African American GFR(MDRD) >60 (>60 ml/min/1.73 sqM); Potassium 3.5 mmol/L (3.5-5.1); Sodium 133 mmol/L (137-145); Total Protein 5.1 g/dL (6.3-8.2)
--- NOTE | 2016-08-03 09:03 | P.GSHP ---
History of Present Illness H&P Date: 08/03/16 Chief Complaint: Small bowel obstruction This a 61-year-old female who presents to the emergency room with complaints of abdominal pain nausea and distention. The patient was worked up found have evidence of small bowel obstruction. Patient was recently diagnosed with metastatic urinary bladder cancer. Patient underwent laparoscopic cholecystectomy last week. She is found have peritoneal nodules. 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 - Constitutional Constitutional: Reports as per HPI Past Medical History Past Medical History: Cancer, Osteoarthritis (OA) Additional Past Medical History / Comment(s): NEW DX BLADDER CANCER, STATES RIGHT SHOULDER PAIN, BLADDER PAIN History of Any Multi-Drug Resistant Organisms: None Reported Past Surgical History: Appendectomy, Cholecystectomy, Orthopedic Surgery, Tonsillectomy, Tubal Ligation, Uterine Ablation Additional Past Surgical History / Comment(s): RIGHT SHOULDER SURGERY X7., GROWTH IN BLADDER REMOVED (JUNE 28, 2016), Past Anesthesia/Blood Transfusion Reactions: No Reported Reaction Past Psychological History: No Psychological Hx Reported Smoking Status: Former smoker Past Alcohol Use History: Occasional Additional Past Alcohol Use History / Comment(s): Patient recently quit smoking. SMOKED 1 PPD. SMOKING SINCE 17 YRS OLD. (APPROX 45 YEARS) Past Drug Use History: None Reported - Past Family History Mother Family Medical History: Deep Vein Thrombosis (DVT) Sister(s) Family Medical History: Deep Vein Thrombosis (DVT) Medications and Allergies Home Medications Medication Instructions Recorded Confirmed Type Calcium Carbonate [Calcium] 1,200 mg PO DAILY 07/23/16 08/02/16 History HYDROcodone/APAP 10-325MG [[place] 1 tab PO QID PRN 07/23/16 08/02/16 History 10-325] Ibuprofen [Motrin] 800 mg PO BID PRN 08/02/16 08/02/16 History Allergies Allergy/AdvReac Type Severity Reaction Status Date / Time No Known Allergies Allergy Verified 08/02/16 21:05 Surgical - Exam Vital Signs Temp Pulse Resp BP Pulse Ox 99.2 F 131 H 18 120/70 92 L 08/02/16 13:05 08/02/16 13:05 08/02/16 13:05 08/02/16 13:05 08/02/16 13:05 - General well developed, no distress - Eyes PERRL - ENT normal pinna - Neck no masses - Cardiovascular Rhythm: regular - Abdomen Abdomen is soft, distended. Abdomen is mildly tender throughout. There is no rebound or guarding. Results - Labs 08/03/16 05:57 08/03/16 05:57 Abnormal Lab Results - Last 24 Hours (Table) 08/03/16 08/03/16 Range/Units 05:57 05:57 WBC 15.8 H (3.8-10.6) k/uL RBC 3.59 L (3.80-5.40) m/uL Hgb 11.1 L (11.4-16.0) gm/dL Plt Count 824 H* (150-450) k/uL Neutrophils # 12.3 H (1.3-7.7) k/uL Sodium 133 L (137-145) mmol/L Chloride 89 L (98-107) mmol/L BUN 23 H (7-17) mg/dL Calcium 7.6 L (8.4-10.2) mg/dL Total Protein 5.1 L (6.3-8.2) g/dL Albumin 2.4 L (3.5-5.0) g/dL Diabetes panel 08/03/16 Range/Units 05:57 Sodium 133 L (137-145) mmol/L Potassium 3.5 (3.5-5.1) mmol/L Chloride 89 L (98-107) mmol/L Carbon Dioxide 29 (22-30) mmol/L BUN 23 H (7-17) mg/dL Creatinine 0.70 (0.52-1.04) mg/dL Glucose 88 (74-99) mg/dL Calcium 7.6 L (8.4-10.2) mg/dL AST 18 (14-36) U/L ALT 26 (9-52) U/L Alkaline Phosphatase 95 (38-126) U/L Total Protein 5.1 L (6.3-8.2) g/dL Albumin 2.4 L (3.5-5.0) g/dL Calcium panel 08/03/16 Range/Units 05:57 Calcium 7.6 L (8.4-10.2) mg/dL Albumin 2.4 L (3.5-5.0) g/dL Pituitary panel 08/03/16 Range/Units 05:57 Sodium 133 L (137-145) mmol/L Potassium 3.5 (3.5-5.1) mmol/L Chloride 89 L (98-107) mmol/L Carbon Dioxide 29 (22-30) mmol/L BUN 23 H (7-17) mg/dL Creatinine 0.70 (0.52-1.04) mg/dL Glucose 88 (74-99) mg/dL Calcium 7.6 L (8.4-10.2) mg/dL Adrenal panel 08/03/16 Range/Units 05:57 Sodium 133 L (137-145) mmol/L Potassium 3.5 (3.5-5.1) mmol/L Chloride 89 L (98-107) mmol/L Carbon Dioxide 29 (22-30) mmol/L BUN 23 H (7-17) mg/dL Creatinine 0.70 (0.52-1.04) mg/dL Glucose 88 (74-99) mg/dL Calcium 7.6 L (8.4-10.2) mg/dL Total Bilirubin 1.0 (0.2-1.3) mg/dL AST 18 (14-36) U/L ALT 26 (9-52) U/L Alkaline Phosphatase 95 (38-126) U/L Total Protein 5.1 L (6.3-8.2) g/dL Albumin 2.4 L (3.5-5.0) g/dL - Imaging CT scan - pelvis: report reviewed (Small bowel obstruction) Assessment and Plan Plan: Small bowel obstruction. Patient will undergo exposure laparotomy today. I discussed that this is most likely due to her metastatic squamous cell carcinoma. I've also discussed through the possible risks of small bowel resection.
[2016-08-03] MEDS: PIPERACILLIN-TAZOBACTAM 3.375 GM in DEXTROSE/WATER 1 50ML.BAG IVPB SCH ×3 (09:34→23:49)
[2016-08-03 10:40] VITALS: BMI 22.7
[2016-08-03] MEDS ORDERED: LACTATED RINGERS 1,000 ML IV ONE ×2 (11:04→12:56)
[2016-08-03] MEDS ORDERED: DEXAMETHASONE SOD PHOSPHATE 10 MG/ML 1 ML VIAL IV ONE (11:15)
[2016-08-03] MEDS ORDERED: ONDANSETRON 4 MG/2 ML VIAL IVP ONE (11:16)
[2016-08-03] MEDS ORDERED: HEPARIN SODIUM,PORCINE 5,000 UNIT/ML 1 ML VIAL IV ONE (11:50)
[2016-08-03] MEDS ORDERED: NEOSTIGMINE 1 MG/ML 10 ML VIAL ONE (11:53)
[2016-08-03] MEDS ORDERED: ROCURONIUM BROMIDE 10 MG/ML 10 ML VIAL IV ONE (11:53)
[2016-08-03] MEDS ORDERED: HYDROmorphone (PF) 1 MG/ML ONE (11:53)
[2016-08-03] MEDS ORDERED: LIDOCAINE 1% INJ 10MG/ML (20 ML MDV) ONE (11:53)
[2016-08-03] MEDS ORDERED: MIDAZOLAM 2 MG/2 ML VIAL ONE (11:53)
[2016-08-03] MEDS ORDERED: GLYCOPYRROLATE 0.2 MG/ML 2 ML VIAL ONE (11:53)
[2016-08-03] MEDS ORDERED: PROPOFOL 10 MG/ML 20 ML VIAL IV ONE (11:53)
[2016-08-03] MEDS ORDERED: SUCCINYLCHOLINE CHLORIDE 100 MG/5 ML SYR IV ONE (11:53)
[2016-08-03] MEDS ORDERED: fentaNYL (PF) 50 MCG/ML 2 ML AMP ONE (11:53)
[2016-08-03] MEDS: PANTOPRAZOLE 40 MG/10 ML VIAL IV SCH (12:59)
[2016-08-03] MEDS ORDERED: HYDROmorphone 1 MG/ML 1 ML SYRINGE IVP PRN (13:08)
[2016-08-03] MEDS ORDERED: ONDANSETRON 4 MG/2 ML VIAL IVP PRN ×2 (13:08→18:16)
[2016-08-03] MEDS ORDERED: BENZOCAINE/MENTHOL LOZENG 1 EACH LOZENGE MUCOUS MEM PRN (13:08)
--- NOTE | 2016-08-03 13:08 | P.OP ---
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 She received general anesthesia. Her abdomen was prepped and draped usual sterile fashion. The abdomen was entered through midline incision. Upon a Cavity there was approximately similar cc of ascites aspirated. The omentum was visualized. There appeared to be significant omental caking of the omentum in the lower quadrants. There is extensive peritoneal metastases. A area of small bowel was visualized and left upper quadrant there was peritoneal studding of the small bowel. The abdomen was frozen with dense tumor in the right and left lower quadrants. At this point decided to abort the procedure. I could not safely bring up a loop of small bowel due to the extensive carcinomatosis. There was carcinomatosis of the omentum small bowel and abdominal wall. The fascia was closed loop #1 PDS suture. The skin was closed hollie.
[2016-08-03] MEDS: HYDROmorphone 1 MG/ML 1 ML SYRINGE IVP ONE ×4 (13:48→15:04)
[2016-08-03] MEDS ORDERED: HEPARIN SODIUM,PORCINE 5,000 UNIT/ML 1 ML VIAL SQ SCH (16:00)
[2016-08-03 16:09] LABS: Basophils # (A) 0.1 k/uL (0-0.2); Basophils % (A) 1 %; CH 29.4; CHCM 29.4; Eosinophils % (A) 0 %; HCT 36.4 % (34.0-46.0); HDW 2.72; HGB 10.9 gm/dL (11.4-16.0); Hypochromasia Marked; Luc # (Auto) 0.34; Luc % (Auto) 2; Lymphocytes # (A) 1.1 k/uL (1.0-4.8); Lymphocytes % (A) 7 %; MCH 30.1 pg (25.0-35.0); MCHC 29.9 g/dL (31.0-37.0); MCV 100.6 fL (80.0-100.0); Macrocytosis Slight; Mean Platelet Volume 6.9; Monocytes # (A) 0.4 k/uL (0-1.0); Monocytes % (A) 3 %; Neutrophils # (A) 13.9 k/uL (1.3-7.7); Neutrophils % (A) 88 %; RBC 3.62 m/uL (3.80-5.40); RDW 13.7 % (11.5-15.5); WBC 15.9 k/uL (3.8-10.6); WBC (Perox) 16.47
[2016-08-03 16:19] LABS: Anion Gap 18 mmol/L; Blood Urea Nitrogen 19 mg/dL (7-17); Calcium 7.5 mg/dL (8.4-10.2); Carbon Dioxide 24 mmol/L (22-30); Chloride 93 mmol/L (98-107); Glucose 101 mg/dL (74-99); Non-African American GFR(MDRD) >60 (>60 ml/min/1.73 sqM); Sodium 135 mmol/L (137-145)
[2016-08-03] MEDS: D5-0.45% NACL WITH KCL 20MEQ/L 1,000 ML IV SCH ×2 (16:19→23:56)
--- NOTE | 2016-08-03 16:41 | P.CONS ---
History of Present Illness - Reason for Consult Consult date: 08/03/16 Requesting physician: Gonzales Crawford - Chief Complaint Abdominal pain - History of Present Illness Is a pleasant 7-year-old lady patient of Dr. Ericka Crawford. She has underlying history off metastatic bladder carcinoma with recent cholecystectomy on 07/26/2016 p laparoscopically, complaining of constipation and abdominal pain, she has infrequent bowel movements, she gave herself an enema 3 days ago without any results, patient has some vomitus has fecaloid material, patient denies any fever or chills patient has weakness. During her last laparoscopic cholecystectomy, there was some noticeable ascites in the perioperative 0.0 T, the gallbladder was extracted as expected with. Her toenail biopsies obtained at that area, biopsy of the. peritonium and gallbladder both showed metastatic squamous cell carcinoma with recently diagnosis of bladder cell carcinoma of squamous cell type In the emergency room CAT scan of the abdomen and pelvis shows ascites off undetermined etiology, new compared to previous exam, dilated contrast filled small bowel loops throughout the abdomen with air-fluid levels, with distal small bowel obstruction is confirmed with internal hernia at the level of the pelvis 411 patient underwent surgery by Dr. 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, omental caking abdomen was frozen with then still more in the right and left lower quadrant the procedure was aborted they were not able to bring up a loop of small bowel for any diverting colostomy, patient was subsequently transferred to the oncology floor Review of Systems Constitutional: Reports as per HPI, Reports anorexia, Reports chronic pain, Reports weakness, Denies chills, Denies chronic headaches, Denies daytime sleepiness, Denies fatigue, Denies fever, Denies lethargy, Denies malaise, Denies night sweats, Denies poor appetite, Denies sweats, Denies weight gain, Denies weight loss Ears, nose, mouth and throat: Reports as per HPI, Denies ant. neck pain, Denies bleeding gums, Denies dental pain, Denies dysphagia, Denies epistaxis, Denies headache, Denies hoarseness, Denies mouth pain, Denies nasal congestion, Denies nasal discharge, Denies neck fullness/pressure, Denies neck lump, Denies nose pain, Denies odynophagia, Denies post-nasal drip, Denies sinus pain, Denies sinus pressure, Denies swelling in mouth, Denies swelling in throat, Denies sore throat, Denies vertigo, Denies voice changes Cardiovascular: Reports as per HPI, Denies chest pain, Denies claudication, Denies decreased exercise tolerance, Denies dyspnea on exertion, Denies edema, Denies high blood pressure, Denies irregular heart beat, Denies leg edema, Denies lightheadedness, Denies orthopnea, Denies palpitations, Denies paroxysmal nocturnal dyspnea, Denies phlebitis, Denies rapid heart beat, Denies shortness of breath, Denies syncope Respiratory: Reports as per HPI, Denies congestion, Denies cough, Denies cough with sputum, Denies dyspnea, Denies excessive sputum, Denies hemoptysis, Denies home oxygen, Denies pain, Denies pain on inspiration, Denies pleurisy, Denies respiratory infections, Denies sleep apnea, Denies snoring, Denies wheezing Gastrointestinal: Reports as per HPI, Reports constipation, Reports indigestion , Denies abdominal pain, Denies belching, Denies bloating, Denies BRBPR, Denies change in bowel habits, Denies coffee ground emesis, Denies diarrhea, Denies dyspepsia, Denies early satiety, Denies excessive gas, Denies heartburn, Denies hematemesis, Denies hematochezia, Denies jaundice, Denies lactose intolerance, Denies loss of appetite, Denies melena, Denies nausea, Denies vomiting Genitourinary: Reports as per HPI, Denies abnormal vaginal bleeding, Denies decreased libido, Denies difficulty conceiving, Denies difficulty voiding, Denies dysmenorrhea, Denies dyspareunia, Denies dysuria, Denies flank pain, Denies genital sores, Denies hematuria, Denies hot flashes, Denies incomplete emptying, Denies kidney stones, Denies menorrhagia, Denies mixed incontinence, Denies nocturia, Denies pelvic pain, Denies post void dribbling, Denies , Denies prolapse symptoms, Denies stress incontinence, Denies urge incontinence , Denies urgency, Denies urinary frequency, Denies vaginal discharge, Denies vaginal dryness, Denies vaginal itching, Denies vaginal odor Menstruation: Reports as per HPI, Denies amenorrhea, Denies amenorrhea on BC, Denies currently menstrual, Denies cycle < 21 days, Denies cycle > 35 days, Denies cycle variable, Denies menses 1-7 days, Denies menses 8 or > days, Denies menses variable, Denies period heavy, Denies period light, Denies period normal, Denies period spotting, Denies post hysterectomy, Denies postmenopausal , Denies premenarcheal Musculoskeletal: Reports as per HPI, Denies arm numbness/tingling, Denies atrophy, Denies fractures, Denies frequent falls, Denies gait dysfunction, Denies hot joints, Denies leg numbness/tingling, Denies limitation of motion, Denies loss of height, Denies low back pain, Denies morning stiffness, Denies muscle cramps, Denies muscle weakness, Denies myalgias, Denies neck pain, Denies neck stiffness, Denies prior amputations, Denies redness of joints, Denies shooting arm pain, Denies shooting leg pain Integumentary: Reports as per HPI Neurological: Reports as per HPI, Reports weakness, Denies aphasia, Denies ataxia, Denies balance difficulties, Denies burning pain, Denies change in mentation, Denies change in smell/taste, Denies change in speech, Denies confusion, Denies convulsions, Denies double vision, Denies gait dysfunction, Denies head injury, Denies headaches, Denies hearing difficulties, Denies lack of coordination, Denies loss of vision, Denies memory loss, Denies migraines, Denies motor disturbance, Denies numbness, Denies paralysis, Denies paresthesias , Denies seizures, Denies sensory deficit, Denies spasticity, Denies syncope, Denies tic, Denies tingling, Denies transient paralysis, Denies tremors, Denies vertigo, Denies visual changes Psychiatric: Reports as per HPI, Denies anhedonia, Denies anxiety, Denies anxiety attacks, Denies change in appetite, Denies change in libido, Denies change in sleep habits, Denies confusion, Denies depression, Denies difficulty concentrating, Denies disorientation, Denies hallucinations, Denies hopelessness , Denies hypersomnia, Denies insomnia, Denies irritability, Denies memory loss, Denies mood swings, Denies paranoia, Denies sadness/tearfulness, Denies sleep disturbances, Denies suicidal ideation Endocrine: Reports as per HPI, Denies cold intolerance, Denies deepening of the voice, Denies excessive sweating, Denies excessive thirst, Denies fatigue, Denies flushing, Denies heat intolerance, Denies high blood sugars, Denies increase in ring/shoe/hat size, Denies low blood sugars, Denies nocturia, Denies palpitations, Denies polydipsia, Denies polyphagia, Denies polyuria, Denies proptosis, Denies recent glucocorticoid use, Denies thyroid mass, Denies weight change Hematologic/Lymphatic: Reports as per HPI, Denies easy bleeding, Denies easy bruising, Denies lymphadenopathy, Denies lymphedema, Denies thrombophilia Allergic/Immunologic: Reports as per HPI Past Medical History Past Medical History: Cancer, Osteoarthritis (OA) Additional Past Medical History / Comment(s): NEW DX BLADDER CANCER, STATES RIGHT SHOULDER PAIN, BLADDER PAIN History of Any Multi-Drug Resistant Organisms: None Reported Past Surgical History: Appendectomy, Cholecystectomy, Orthopedic Surgery, Tonsillectomy, Tubal Ligation, Uterine Ablation Additional Past Surgical History / Comment(s): RIGHT SHOULDER SURGERY X7., GROWTH IN BLADDER REMOVED (JUNE 28, 2016), Past Anesthesia/Blood Transfusion Reactions: No Reported Reaction Past Psychological History: No Psychological Hx Reported Smoking Status: Former smoker Past Alcohol Use History: Occasional Additional Past Alcohol Use History / Comment(s): Patient recently quit smoking. SMOKED 1 PPD. SMOKING SINCE 17 YRS OLD. (APPROX 45 YEARS) Past Drug Use History: None Reported - Past Family History Mother Family Medical History: Deep Vein Thrombosis (DVT) Sister(s) Family Medical History: Deep Vein Thrombosis (DVT) Father Family Medical History: COPD Brother(s) Family Medical History: Unable to Obtain ( of SIDS) Daughter(s) Family Medical History: No Reported History Medications and Allergies Home Medications Medication Instructions Recorded Confirmed Type Calcium Carbonate [Calcium] 1,200 mg PO DAILY 07/23/16 08/02/16 History HYDROcodone/APAP 10-325MG [[place] 1 tab PO QID PRN 07/23/16 08/02/16 History 10-325] Ibuprofen [Motrin] 800 mg PO BID PRN 08/02/16 08/02/16 History Allergies Allergy/AdvReac Type Severity Reaction Status Date / Time No Known Allergies Allergy Verified 08/02/16 21:05 Physical Exam Vitals: Vital Signs Temp Pulse Pulse Pulse Pulse Resp BP 08/03/16 15:00 98.5 F 115 H 20 08/03/16 14:51 112 H 16 08/03/16 14:21 108 H 16 08/03/16 14:06 109 H 16 08/03/16 13:51 104 H 16 08/03/16 13:36 102 H 16 08/03/16 13:21 102 H 16 08/03/16 13:06 98.2 F 104 H 10 L 08/03/16 10:57 99.6 F 111 H 16 08/03/16 08:00 118 H 16 08/03/16 07:49 118 H 16 08/03/16 04:00 98.8 F 113 H 16 08/03/16 00:00 98.9 F 116 H 16 08/02/16 19:12 98.7 F 08/02/16 19:00 118 H 16 126/73 BP BP Pulse Ox 08/03/16 15:00 125/69 94 L 08/03/16 14:51 126/69 96 08/03/16 14:21 130/69 95 08/03/16 14:06 124/64 95 08/03/16 13:51 130/70 96 08/03/16 13:36 130/74 97 08/03/16 13:21 130/74 96 08/03/16 13:06 129/72 91 L 08/03/16 10:57 127/68 94 L 08/03/16 08:00 126/71 94 L 08/03/16 07:49 126/71 94 L 08/03/16 04:00 117/64 93 L 08/03/16 00:00 129/73 97 08/02/16 19:12 08/02/16 19:00 92 L Intake and Output 08/03/16 08/03/16 08/03/16 06:59 14:59 22:59 Intake Total 1318 550 Output Total 120 Balance 1198 550 Intake: IV 1200 550 Oral 118 Output: Urine 100 Estimated Blood Loss 20 Other: Voiding Method Bedside Commode Bedside Commode Indwelling Catheter # Voids 1 Weight 58.2 kg 58.2 kg Patient Weight 08/04/16 06:59 Weight 58.2 kg - Constitutional General appearance: average body habitus, cooperative, no acute distress - EENT Eyes: anicteric sclerae, EOMI, PERRLA, dentition normal, normal appearance ENT: no hard of hearing, hearing grossly normal, NA/AT, normal oropharynx, no other, no pharyngeal erythema, no thrush, no tonsillar exudates, no tonsillar swelling - Neck Neck: no lymphadenopathy, normal ROM, no other, no rigidity, no stridor, no thyromegaly - Respiratory Respiratory: bilateral: CTA, negative: diminished, dullness, rales, rhonchi - Cardiovascular Rhythm: regular Heart sounds: normal: S1, S2 Abnormal Heart Sounds: no systolic murmur, no diastolic murmur, no rub, no S3 Gallop, no S4 Gallop, no click, no other - Gastrointestinal General gastrointestinal: soft - Integumentary Integumentary: decreased turgor, normal - Musculoskeletal Musculoskeletal: generalized weakness - Psychiatric Psychiatric: A&O x's 3, appropriate affect, intact judgment & insight Results CBC & Chem 7: 08/03/16 15:31 08/03/16 05:57 Labs: Abnormal Lab Results - Last 24 Hours (Table) 08/03/16 08/03/16 08/03/16 Range/Units 05:57 05:57 15:31 WBC 15.8 H 15.9 H (3.8-10.6) k/uL RBC 3.59 L 3.62 L (3.80-5.40) m/uL Hgb 11.1 L 10.9 L (11.4-16.0) gm/dL MCV 100.6 H (80.0-100.0) fL MCHC 29.9 L (31.0-37.0) g/dL Plt Count 824 H* 749 H (150-450) k/uL Neutrophils # 12.3 H 13.9 H (1.3-7.7) k/uL Sodium 133 L (137-145) mmol/L Chloride 89 L (98-107) mmol/L BUN 23 H (7-17) mg/dL Calcium 7.6 L (8.4-10.2) mg/dL Total Protein 5.1 L (6.3-8.2) g/dL Albumin 2.4 L (3.5-5.0) g/dL Laboratory Results WBC 15.9 k/uL (3.8-10.6) H 08/03/16 15:31 RBC 3.62 m/uL (3.80-5.40) L 08/03/16 15:31 Hgb 10.9 gm/dL (11.4-16.0) L 08/03/16 15: Hct 36.4 % (34.0-46.0) 08/03/16 15: MCV 100.6 fL (80.0-100.0) H 08/03/16 15:31 MCH 30.1 pg (25.0-35.0) 08/03/16 15: MCHC 29.9 g/dL (31.0-37.0) L 08/03/16 15: RDW 13.7 % (11.5-15.5) 08/03/16 15:31 Plt Count 749 k/uL (150-450) H 08/03/16 15: Neutrophils % 88 % 08/03/16 15: Neutrophils % (Manual) 82.0 % 08/02/16 13:50 Lymphocytes % 7 % 08/03/16 15: Lymphocytes % (Manual) 13.0 % 08/02/16 13:50 Monocytes % 3 % 08/03/16 15: Monocytes % (Manual) 5.0 % 08/02/16 13:50 Eosinophils % 0 % 08/03/16 15: Basophils % 1 % 08/03/16 15:31 Neutrophils # 13.9 k/uL (1.3-7.7) H 08/03/16 15:31 Neutrophils # (Manual) 15.4 k/uL (1.3-7.7) H 08/02/16 13:50 Lymphocytes # 1.1 k/uL (1.0-4.8) 08/03/16 15:31 Lymphocytes # (Manual) 2.4 k/uL (1.0-4.8) 08/02/16 13:50 Monocytes # 0.4 k/uL (0-1.0) 08/03/16 15:31 Monocytes # (Manual) 0.9 k/uL (0-1.0) 08/02/16 13:50 Eosinophils # 0.0 k/uL (0-0.7) 08/03/16 15:31 Basophils # 0.1 k/uL (0-0.2) 08/03/16 15:31 Nucleated RBCs 0 /100 WBC (0-0) 08/02/16 13:50 Manual Slide Review Performed 08/02/16 13:50 Polychromasia Present 08/02/16 13:50 Hypochromasia Marked 08/03/16 15:31 Macrocytosis Slight 08/03/16 15:31 Target Cells Present 08/02/16 13:50 PT 17.9 sec (9.0-12.0) H 08/02/16 13:50 INR 1.9 (<1.1) 08/02/16 13:50 APTT 33.0 sec (22.0-30.0) H 08/02/16 13:50 Sodium 135 mmol/L (137-145) L 08/03/16 15:31 Potassium 4.0 mmol/L (3.5-5.1) 08/03/16 15:31 Chloride 93 mmol/L (98-107) L 08/03/16 15:31 Carbon Dioxide 24 mmol/L (22-30) 08/03/16 15:31 Anion Gap 18 mmol/L 08/03/16 15:31 BUN 19 mg/dL (7-17) H 08/03/16 15:31 Creatinine 0.55 mg/dL (0.52-1.04) 08/03/16 15:31 Est GFR (MDRD) Af Amer >60 (>60 ml/min/1.73 sqM) 08/03/16 15:31 Est GFR (MDRD) Non-Af >60 (>60 ml/min/1.73 sqM) 08/03/16 15:31 Glucose 101 mg/dL (74-99) H 08/03/16 15:31 Plasma Lactic Acid Wagner 1.1 mmol/L (0.7-2.0) 08/02/16 22:06 Calcium 7.5 mg/dL (8.4-10.2) L 08/03/16 15:31 Total Bilirubin 1.0 mg/dL (0.2-1.3) 08/03/16 05:57 AST 18 U/L (14-36) 08/03/16 05:57 ALT 26 U/L (9-52) 08/03/16 05:57 Alkaline Phosphatase 95 U/L (38-126) 08/03/16 05:57 Troponin I <0.012 ng/mL (0.000-0.034) 08/02/16 13:50 Total Protein 5.1 g/dL (6.3-8.2) L 08/03/16 05:57 Albumin 2.4 g/dL (3.5-5.0) L 08/03/16 05:57 Amylase <30 U/L (30-110) L 08/02/16 13:50 Lipase <10 U/L (23-300) L 08/02/16 13:50 Urine Color Dark Yellow 08/02/16 13:50 Urine Appearance Cloudy (Clear) H 08/02/16 13:50 Urine pH 5.5 (5.0-8.0) 08/02/16 13:50 Ur Specific [place] 1.020 (1.001-1.035) 08/02/16 13:50 Urine Protein 1+ (Negative) H 08/02/16 13:50 Urine Glucose (UA) Negative (Negative) 08/02/16 13:50 Urine Ketones 2+ (Negative) H 08/02/16 13:50 Urine Blood Moderate (Negative) H 08/02/16 13:50 Urine Nitrite Negative (Negative) 08/02/16 13:50 Urine Bilirubin 1+ (Negative) H 08/02/16 13:50 Urine Urobilinogen <2.0 mg/dL (<2.0) 08/02/16 13:50 Ur Leukocyte Esterase Large (Negative) H 08/02/16 13:50 Urine RBC 16 /hpf (0-5) H 08/02/16 13:50 Urine WBC 123 /hpf (0-5) H 08/02/16 13:50 Ur Squamous Epith Cells 4 /hpf (0-4) 08/02/16 13:50 Urine Bacteria Rare /hpf (None) H 08/02/16 13:50 Hyaline Casts 3 /lpf (0-2) H 08/02/16 13:50 Urine Mucus Rare /hpf (None) H 08/02/16 13:50 Urine Yeast (Budding) Few /hpf (None) H 08/02/16 13:50 Gastric Occult Blood Positive (Negative) 08/02/16 15:00 Blood Type A Positive 08/03/16 09:42 Blood Type Confirm A Positive 08/03/16 05:57 Blood Type Recheck CABO Indicated 08/03/16 09:42 Antibody Screen NEGATIVE 08/03/16 09:42 Spec Expiration Date 08/06/2016 - 2342 08/03/16 09:42 Assessment and Plan Plan: 1. Abdominal pain with constipation significant with small bowel obstruction, related to carcinoid and metastatic lesion from primary bladder cancer, exploratory laparotomy was performed on 08/03/2016 for which the procedure for diverting colostomy cannot be performed nor can they release the adhesions to free the small bowel obstruction secondary to significant omental caking and frozen bowels with significant ascites and metastatic peritoneal burden, consults were made with Dr. Ellis . Currently is on an NG tube and is nothing by mouth, Dilaudid for pain and Zofran when necessary 2. Metastatic bladder carcinoma recently discovered, Dr. Vera is on consult 3. COPD without any exacerbation patient will be placed on when necessary albuterol Atrovent 4. Current tobacco use 5. Pyuria patient currently is on Zosyn, cultures have been sent 5. Family history of DVT 6. GI prophylaxis and DVT prophylaxis with subcutaneous heparin and mechanical prophylaxis 7. Prognosis is very poor. 8 CODE STATUS not discussed at this time at immediate postop evaluation
[2016-08-03] MEDS: HYDROmorphone 2 MG/ML 1 ML SYRINGE IVP PRN ×3 (16:57→21:20)
[2016-08-03] MEDS ORDERED: LORazepam 2 MG/ML SYRINGE IV PRN (18:16)
--- NOTE | 2016-08-03 18:39 | P.CONS ---
History of Present Illness - Reason for Consult Consult date: 08/03/16 metastatic bladder cancer, peritoneal carcinomatosis - History of Present Illness The patient is a pleasant 61-year-old lady, who was found to have a mass in the bladder, somewhat more than a month ago. She had apparently presented with some difficulty in urination and bleeding. We do not have the original biopsy result available, but per the family this showed an aggressive cancer. The patient was referred to [facility], for surgical evaluation. While still awaiting therapy, the patient was admitted to the hospital on with abdominal pain and nausea. She was felt to have cholecystitis and underwent a laparoscopic cholecystectomy. During the surgery she was found to have evidence of peritoneal implants. The gallbladder was dissected and showed evidence of squamous cell cancer growing on to the bladder from the outside. I. On lymph node that was biopsied was also positive for metastatic squamous cell cancer. This appeared to be originating from the bladder. the patient subsequently developed progressive abdominal distention, pain, as well as nausea. She came into the emergency room where she reported inability to have a bowel movement or to pass gas. CT scans were consistent with abdominal obstruction. The patient was taken to the operating room by . Unfortunately, on expiration, she was found to have widespread peritoneal carcinomatosis with essentially a frozen bowel. Any kind of diverting procedure was not possible. Therefore the surgery was aborted, and the incision closed. An NG tube was placed, and the patient was transferred to the floor. Consult was placed for further evaluation. Review of Systems Constitutional: Reports chronic pain, Reports poor appetite, Reports weakness, Reports weight loss Eyes: denies blurred vision, denies pain Ears: deny: decreased hearing, ear discharge, earache, tinnitus Ears, nose, mouth and throat: Denies headache, Denies sore throat Cardiovascular: Denies chest pain, Denies shortness of breath Respiratory: Reports congestion Gastrointestinal: Reports as per HPI, Reports abdominal pain, Reports bloating, Reports constipation Genitourinary: Reports as per HPI, Reports hematuria Menstruation: Reports postmenopausal Musculoskeletal: Denies myalgias Integumentary: Denies pruritus, Denies rash Neurological: Reports weakness Psychiatric: Denies anxiety, Denies depression Endocrine: Reports fatigue, Reports weight change Hematologic/Lymphatic: Reports as per HPI Past Medical History Past Medical History: Cancer, Osteoarthritis (OA) Additional Past Medical History / Comment(s): NEW DX BLADDER CANCER, STATES RIGHT SHOULDER PAIN, BLADDER PAIN History of Any Multi-Drug Resistant Organisms: None Reported Past Surgical History: Appendectomy, Cholecystectomy, Orthopedic Surgery, Tonsillectomy, Tubal Ligation, Uterine Ablation Additional Past Surgical History / Comment(s): RIGHT SHOULDER SURGERY X7., GROWTH IN BLADDER REMOVED (JUNE 28, 2016), Past Anesthesia/Blood Transfusion Reactions: No Reported Reaction Past Psychological History: No Psychological Hx Reported Smoking Status: Former smoker Past Alcohol Use History: Occasional Additional Past Alcohol Use History / Comment(s): Patient recently quit smoking. SMOKED 1 PPD. SMOKING SINCE 17 YRS OLD. (APPROX 45 YEARS) Past Drug Use History: None Reported - Past Family History Mother Family Medical History: Deep Vein Thrombosis (DVT) Sister(s) Family Medical History: Deep Vein Thrombosis (DVT) Father Family Medical History: COPD Brother(s) Family Medical History: Unable to Obtain ( of SIDS) Daughter(s) Family Medical History: No Reported History Medications and Allergies Home Medications Medication Instructions Recorded Confirmed Type Calcium Carbonate [Calcium] 1,200 mg PO DAILY 07/23/16 08/02/16 History HYDROcodone/APAP 10-325MG [[place] 1 tab PO QID PRN 07/23/16 08/02/16 History 10-325] Ibuprofen [Motrin] 800 mg PO BID PRN 08/02/16 08/02/16 History Allergies Allergy/AdvReac Type Severity Reaction Status Date / Time No Known Allergies Allergy Verified 08/02/16 21:05 Physical Exam Vitals: Vital Signs Temp Pulse Pulse Pulse Pulse Resp BP 08/03/16 15:00 98.5 F 115 H 20 08/03/16 14:51 112 H 16 08/03/16 14:21 108 H 16 08/03/16 14:06 109 H 16 08/03/16 13:51 104 H 16 08/03/16 13:36 102 H 16 08/03/16 13:21 102 H 16 08/03/16 13:06 98.2 F 104 H 10 L 08/03/16 10:57 99.6 F 111 H 16 08/03/16 08:00 118 H 16 08/03/16 07:49 118 H 16 08/03/16 04:00 98.8 F 113 H 16 08/03/16 00:00 98.9 F 116 H 16 08/02/16 19:12 98.7 F 08/02/16 19:00 118 H 16 126/73 BP BP Pulse Ox 08/03/16 15:00 125/69 94 L 08/03/16 14:51 126/69 96 08/03/16 14:21 130/69 95 08/03/16 14:06 124/64 95 08/03/16 13:51 130/70 96 08/03/16 13:36 130/74 97 08/03/16 13:21 130/74 96 08/03/16 13:06 129/72 91 L 08/03/16 10:57 127/68 94 L 08/03/16 08:00 126/71 94 L 08/03/16 07:49 126/71 94 L 08/03/16 04:00 117/64 93 L 08/03/16 00:00 129/73 97 08/02/16 19:12 08/02/16 19:00 92 L Intake and Output 08/03/16 08/03/16 08/03/16 06:59 14:59 22:59 Intake Total 1318 550 Output Total 120 Balance 1198 550 Intake: IV 1200 550 Oral 118 Output: Urine 100 Estimated Blood Loss 20 Other: Voiding Method Bedside Commode Bedside Commode Indwelling Catheter # Voids 1 Weight 58.2 kg 58.2 kg Patient Weight 08/04/16 06:59 Weight 58.2 kg - Constitutional General appearance: no acute distress - EENT Eyes: EOMI, PERRLA ENT: hearing grossly normal - Neck Neck: no lymphadenopathy - Respiratory Respiratory: bilateral: diminished - Cardiovascular Rhythm: regular Heart sounds: normal: S1, S2 - Gastrointestinal General gastrointestinal: absent bowel sounds, rigid Localized gastrointestinal: tender: diffuse - Integumentary Integumentary: normal - Neurologic Neurologic: CNII-XII intact - Musculoskeletal Musculoskeletal: generalized weakness, strength equal bilaterally - Psychiatric Psychiatric: A&O x's 3, appropriate affect Results CBC & Chem 7: 08/03/16 15:31 08/03/16 15:31 Labs: Abnormal Lab Results - Last 24 Hours (Table) 08/03/16 08/03/16 08/03/16 Range/Units 05:57 05:57 15:31 WBC 15.8 H 15.9 H (3.8-10.6) k/uL RBC 3.59 L 3.62 L (3.80-5.40) m/uL Hgb 11.1 L 10.9 L (11.4-16.0) gm/dL MCV 100.6 H (80.0-100.0) fL MCHC 29.9 L (31.0-37.0) g/dL Plt Count 824 H* 749 H (150-450) k/uL Neutrophils # 12.3 H 13.9 H (1.3-7.7) k/uL Sodium 133 L (137-145) mmol/L Chloride 89 L (98-107) mmol/L BUN 23 H (7-17) mg/dL Glucose (74-99) mg/dL Calcium 7.6 L (8.4-10.2) mg/dL Total Protein 5.1 L (6.3-8.2) g/dL Albumin 2.4 L (3.5-5.0) g/dL 08/03/16 Range/Units 15:31 WBC (3.8-10.6) k/uL RBC (3.80-5.40) m/uL Hgb (11.4-16.0) gm/dL MCV (80.0-100.0) fL MCHC (31.0-37.0) g/dL Plt Count (150-450) k/uL Neutrophils # (1.3-7.7) k/uL Sodium 135 L (137-145) mmol/L Chloride 93 L (98-107) mmol/L BUN 19 H (7-17) mg/dL Glucose 101 H (74-99) mg/dL Calcium 7.5 L (8.4-10.2) mg/dL Total Protein (6.3-8.2) g/dL Albumin (3.5-5.0) g/dL Abdominal x-ray: report reviewed CT scan - abdomen: report reviewed CT scan - pelvis: report reviewed Assessment and Plan (1) Metastatic carcinoma of the bladder Narrative/Plan: the patient is presenting with an aggressive bladder cancer, with widespread peritoneal metastasis. The patient had evidence of the same during her laparoscopic cholecystectomy about a week ago. Operative notes from both visits were compared, and there appears to be progression even during that period. Her the patient has essentially a frozen bowel, with no possibility of a diverting procedure. The implications of the above were discussed in detail with the patient and her family. As noted, any kind of surgical intervention does not appear to be possible. Therefore the patient has a nonfunctioning bowel at this time. She has an aggressive, stage IV, incurable cancer. With a nonfunctioning bowel, active treatment essentially not possible. In theory, the patient can be placed on TPN and subsequently started on chemotherapy in the hopes that it will reduce tumor burden and off for her bowels to start functioning. Practically speaking, the possibility of that happening is extremely slim. In addition even if the patient were placed on TPN, we could not start her on chemotherapy for at least a few weeks, to enable her to heal up from surgery. Given the clinical behavior, her cancer is likely to progress further during that period of time, further compromising her performance status. Therefore even with that intervention, the chances of her being able to have chemotherapy and derive any benefit from that would be very very low. Therefore, in my opinion, comfort care approach is most suitable. The patient and her family were agreeable to the same. A PEG tube placement for decompression can be considered, but at this time they are quite reluctant, understandably, for another procedure. In addition if the patient has extensive peritoneal involvement, technically the procedure may be quite difficult. Therefore, we'll continue the patient on NG tube for decompression. CODE STATUS will be changed to know for no CPR. She'll be placed on a comfort care, with morphine drip started with orders for titration. additional metastases for comfort, including Zofran and Ativan will be ordered. blood draws will be discontinued .Hospice will be consulted. Status: Acute
[2016-08-03] MEDS: MORPHINE SULFATE 100 MG in SODIUM CHLORIDE 0.9% 100 ML IV SCH (19:56)
[2016-08-04] MEDS: HYDROmorphone 2 MG/ML 1 ML SYRINGE IVP PRN ×5 (02:56→14:24)
[2016-08-04] MEDS: D5-0.45% NACL WITH KCL 20MEQ/L 1,000 ML IV SCH ×2 (08:25→18:14)
[2016-08-04 08:28] VITALS: BP 116/72; PULSE 124; RESP 20; TEMP 98.1
[2016-08-04] MEDS: PANTOPRAZOLE 40 MG/10 ML VIAL IV SCH (08:28)
[2016-08-04] MEDS: PIPERACILLIN-TAZOBACTAM 3.375 GM in DEXTROSE/WATER 1 50ML.BAG IVPB SCH (10:20)
--- NOTE | 2016-08-04 10:33 | P.GSCN ---
History of Present Illness Consult date: 08/04/16 Reason for Consult: Bladder cancer History of present illness: The patient is a 61-year-old female who came to our office and the end of April with a history of recurring urinary infections. She was placed on antibiotics for a few weeks to see if we can control this. This was culture specific. The infection didn't clear so she was set up for cystoscopy. She underwent cystoscopy which identified a mass in the anterior bladder wall. She underwent resection of this in early June which identified and muscle invasive squamous cell carcinoma. There is no obvious metastases on CAT scan. She was sent to [facility] for surgical consultation for possible robotic cystectomy. She was to have this however ended up with abdominal pain ended up in [facility] where she underwent surgical exploration or is found she had diffuse peritoneal metastases and mesenteric metastases leading to the small bowel obstruction. Dr. Crawford of general surgery dealt with this. She has seen Dr. Boston of oncology and due to the wide diffuse metastasis has been placed in hospice care. I was asked see the patient. Review of Systems - Gastrointestinal Reports abdominal pain, Reports nausea, Reports vomiting Past Medical History Past Medical History: Cancer, Osteoarthritis (OA) Additional Past Medical History / Comment(s): NEW DX BLADDER CANCER, STATES RIGHT SHOULDER PAIN, BLADDER PAIN History of Any Multi-Drug Resistant Organisms: None Reported Past Surgical History: Appendectomy, Cholecystectomy, Orthopedic Surgery, Tonsillectomy, Tubal Ligation, Uterine Ablation Additional Past Surgical History / Comment(s): RIGHT SHOULDER SURGERY X7., GROWTH IN BLADDER REMOVED (JUNE 28, 2016), Past Anesthesia/Blood Transfusion Reactions: No Reported Reaction Past Psychological History: No Psychological Hx Reported Smoking Status: Former smoker Past Alcohol Use History: Occasional Additional Past Alcohol Use History / Comment(s): Patient recently quit smoking. SMOKED 1 PPD. SMOKING SINCE 17 YRS OLD. (APPROX 45 YEARS) Past Drug Use History: None Reported - Past Family History Mother Family Medical History: Deep Vein Thrombosis (DVT) Sister(s) Family Medical History: Deep Vein Thrombosis (DVT) Father Family Medical History: COPD Brother(s) Family Medical History: Unable to Obtain ( of SIDS) Daughter(s) Family Medical History: No Reported History Medications and Allergies Home Medications Medication Instructions Recorded Confirmed Type Calcium Carbonate [Calcium] 1,200 mg PO DAILY 07/23/16 08/02/16 History HYDROcodone/APAP 10-325MG [[place] 1 tab PO QID PRN 07/23/16 08/02/16 History 10-325] Ibuprofen [Motrin] 800 mg PO BID PRN 08/02/16 08/02/16 History Allergies Allergy/AdvReac Type Severity Reaction Status Date / Time No Known Allergies Allergy Verified 08/02/16 21:05 Surgical - Exam Vital Signs Temp Pulse Resp BP Pulse Ox 99.2 F 131 H 18 120/70 92 L 08/02/16 13:05 08/02/16 13:05 08/02/16 13:05 08/02/16 13:05 08/02/16 13:05 - General moderate pain, cachectic - Respiratory normal expansion, normal respiratory effort - Abdomen Nasogastric tube - Psychiatric oriented to time, oriented to person, oriented to place, speech is normal, memory intact Results - Labs 08/03/16 15:31 08/03/16 15:31 Abnormal Lab Results - Last 24 Hours (Table) 08/03/16 08/03/16 Range/Units 15:31 15:31 WBC 15.9 H (3.8-10.6) k/uL RBC 3.62 L (3.80-5.40) m/uL Hgb 10.9 L (11.4-16.0) gm/dL MCV 100.6 H (80.0-100.0) fL MCHC 29.9 L (31.0-37.0) g/dL Plt Count 749 H (150-450) k/uL Neutrophils # 13.9 H (1.3-7.7) k/uL Sodium 135 L (137-145) mmol/L Chloride 93 L (98-107) mmol/L BUN 19 H (7-17) mg/dL Glucose 101 H (74-99) mg/dL Calcium 7.5 L (8.4-10.2) mg/dL Diabetes panel 08/03/16 Range/Units 15:31 Sodium 135 L (137-145) mmol/L Potassium 4.0 (3.5-5.1) mmol/L Chloride 93 L (98-107) mmol/L Carbon Dioxide 24 (22-30) mmol/L BUN 19 H (7-17) mg/dL Creatinine 0.55 (0.52-1.04) mg/dL Glucose 101 H (74-99) mg/dL Calcium 7.5 L (8.4-10.2) mg/dL Calcium panel 08/03/16 Range/Units 15:31 Calcium 7.5 L (8.4-10.2) mg/dL Pituitary panel 08/03/16 Range/Units 15:31 Sodium 135 L (137-145) mmol/L Potassium 4.0 (3.5-5.1) mmol/L Chloride 93 L (98-107) mmol/L Carbon Dioxide 24 (22-30) mmol/L BUN 19 H (7-17) mg/dL Creatinine 0.55 (0.52-1.04) mg/dL Glucose 101 H (74-99) mg/dL Calcium 7.5 L (8.4-10.2) mg/dL Adrenal panel 08/03/16 Range/Units 15:31 Sodium 135 L (137-145) mmol/L Potassium 4.0 (3.5-5.1) mmol/L Chloride 93 L (98-107) mmol/L Carbon Dioxide 24 (22-30) mmol/L BUN 19 H (7-17) mg/dL Creatinine 0.55 (0.52-1.04) mg/dL Glucose 101 H (74-99) mg/dL Calcium 7.5 L (8.4-10.2) mg/dL Assessment and Plan Plan: Impression: Metastatic, invasive squamous cell carcinoma the bladder. I'll obstruction secondary to the metastases. Recommendation. Unfortunately due to the cell type this would be a surgical disease only. Due to the metastases no therapy would be in order however due to the masses metastases with the cell type she has been placed in hospice care. I spent an extensive period of time with the patient and her family scuff seen her disease, the events leading up to her disease, the treatment options. They understand the poor prognosis. The supportive care from hospice will be given.
--- NOTE | 2016-08-04 15:43 | P.PN ---
Michelle Is a pleasant 7-year-old lady patient of Dr. Ericka Crawford. She has underlying history off metastatic bladder carcinoma with recent cholecystectomy on 07/26/2016 p laparoscopically, complaining of constipation and abdominal pain, she has infrequent bowel movements, she gave herself an enema 3 days ago without any results, patient has some vomitus has fecaloid material, patient denies any fever or chills patient has weakness. During her last laparoscopic cholecystectomy, there was some noticeable ascites in the perioperative 0.0 T, the gallbladder was extracted as expected with. Her toenail biopsies obtained at that area, biopsy of the. peritonium and gallbladder both showed metastatic squamous cell carcinoma with recently diagnosis of bladder cell carcinoma of squamous cell type In the emergency room CAT scan of the abdomen and pelvis shows ascites off undetermined etiology, new compared to previous exam, dilated contrast filled small bowel loops throughout the abdomen with air-fluid levels, with distal small bowel obstruction is confirmed with internal hernia at the level of the pelvis 411 patient underwent surgery by Dr. 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 Patient has also been seen by oncology and plan is for comfort care with morphine drip. Objective - Vital Signs Vital signs: Vital Signs Temp 98.1 F 08/04/16 07:00 Pulse 124 H 08/04/16 07:00 Resp 20 08/04/16 07:00 BP 116/72 08/04/16 07:00 Pulse Ox 90 L 08/04/16 07:00 Intake & Output 08/03/16 08/04/16 08/04/16 18:59 06:59 18:59 Intake Total 1868 1576.333 24.3 Output Total 120 500 Balance 1748 1076.333 24.3 Weight 58.2 kg Intake: IV 1750 1566 D5-0.45% NaCl with KCl 1500 20Meq/l 1,000 ml @ 125 mls/hr IV .[facility] Rx#: [id number] Morphine Sulfate 100 mg 16 In Sodium Chloride 0.9% 100 ml @ As Directed IV . Q0M [facility] Rx#:[id number] Piperacillin-Tazobactam 3 50 .375 gm In Dextrose/Water 1 50ml.bag @ 12.5 mls/hr IVPB Q8HR [facility] Rx#: [id number] Intake, IV Titration 10.333 24.3 Amount Morphine Sulfate 100 mg 10.333 24.3 In Sodium Chloride 0.9% 100 ml @ As Directed IV . Q0M [facility] Rx#:[id number] Oral 118 Output: Gastric Drainage 500 Urine 100 Estimated Blood Loss 20 Other: Voiding Method Indwelling Catheter Indwelling Catheter - Exam General appearance: average body habitus, cooperative, no acute distress - EENT Eyes: anicteric sclerae, EOMI, PERRLA, dentition normal, normal appearance ENT: no hard of hearing, hearing grossly normal, NA/AT, normal oropharynx, no other, no pharyngeal erythema, no thrush, no tonsillar exudates, no tonsillar swelling - Neck Neck: no lymphadenopathy, normal ROM, no other, no rigidity, no stridor, no thyromegaly - Respiratory Respiratory: bilateral: CTA, negative: diminished, dullness, rales, rhonchi - Cardiovascular Rhythm: regular Heart sounds: normal: S1, S2 Abnormal Heart Sounds: no systolic murmur, no diastolic murmur, no rub, no S3 Gallop, no S4 Gallop, no click, no other - Gastrointestinal General gastrointestinal: soft - Integumentary Integumentary: decreased turgor, normal - Musculoskeletal Musculoskeletal: generalized weakness - Psychiatric Psychiatric: A&O x's 3, appropriate affect, intact judgment & insight - Labs CBC & Chem 7: 08/03/16 15:31 08/03/16 15:31 Labs: Abnormal Lab Results - Last 24 Hours (Table) 08/03/16 08/03/16 Range/Units 15:31 15:31 WBC 15.9 H (3.8-10.6) k/uL RBC 3.62 L (3.80-5.40) m/uL Hgb 10.9 L (11.4-16.0) gm/dL MCV 100.6 H (80.0-100.0) fL MCHC 29.9 L (31.0-37.0) g/dL Plt Count 749 H (150-450) k/uL Neutrophils # 13.9 H (1.3-7.7) k/uL Sodium 135 L (137-145) mmol/L Chloride 93 L (98-107) mmol/L BUN 19 H (7-17) mg/dL Glucose 101 H (74-99) mg/dL Calcium 7.5 L (8.4-10.2) mg/dL Assessment and Plan Plan: 1. Abdominal pain with constipation significant with small bowel obstruction, related to carcinoid and metastatic lesion from primary bladder cancer, exploratory laparotomy was performed on 08/03/2016 for which the procedure for diverting colostomy cannot be performed nor can they release the adhesions to free the small bowel obstruction secondary to significant omental caking and frozen bowels with significant ascites and metastatic peritoneal burden, consults were made with Dr. Ellis . Currently is on an NG tube and is nothing by mouth, Dilaudid for pain and Zofran when necessary 2. Metastatic bladder carcinoma recently discovered, Dr. Vera is on consult 3. COPD without any exacerbation patient will be placed on when necessary albuterol Atrovent 4. Current tobacco use 5. Pyuria patient currently is on Zosyn, cultures have been sent 5. Family history of DVT 6. GI prophylaxis and DVT prophylaxis with subcutaneous heparin and mechanical prophylaxis 7. Prognosis is very poor. 8 CODE STATUS no code. Plan: Comfort care Discharge plan: Impression and plan of care have been directed as dictated by the signing physician. Sarah Chester nurse practitioner acting as scribe for signing physician. Time with Patient: Greater than 30
[2016-08-04] MEDS ORDERED: MORPHINE SULFATE 10 MG/ML SYRINGE IVP PRN (16:18)
--- NOTE | 2016-08-04 16:21 | P.PN ---
Progress Note - Text The patient is resting in her bed. She is awake. She states she has abdominal pain. On exam her vital signs appear stable. Her abdomen is distended soft with some incisional pain. There is no rebound or guarding. The patient has diffuse metastatic squamous cell carcinoma. Her disease is nonresectable. The patient will be entering hospice today. I've increased her pain meds slightly to deal with her pain. Her prognosis is poor.
[2016-08-04] MEDS: MORPHINE SULFATE 100 MG in SODIUM CHLORIDE 0.9% 100 ML IV SCH (17:00)
--- NOTE | 2016-08-04 17:48 | P.PN ---
Subjective Principal diagnosis: Malignancy related pain, bowel obstruction/ileus secondary to metastatic malignancy Checked in on pt and family, pt is having morphine drip titrated hourly for pain control Objective - Vital Signs Vital signs: Vital Signs Temp 98.1 F 08/04/16 07:00 Pulse 124 H 08/04/16 07:00 Resp 20 08/04/16 07:00 BP 116/72 08/04/16 07:00 Pulse Ox 90 L 08/04/16 07:00 Intake & Output 08/03/16 08/04/16 08/04/16 18:59 06:59 18:59 Intake Total 1868 7736.871 4994.467 Output Total 120 500 Balance 1748 5156.962 2473.467 Weight 58.2 kg Intake: IV 1750 1566 1050 D5-0.45% NaCl with KCl 1500 1000 20Meq/l 1,000 ml @ 125 mls/hr IV .Q8H [facility] Rx#: [id number] Morphine Sulfate 100 mg 16 In Sodium Chloride 0.9% 100 ml @ As Directed IV . Q0M [facility] Rx#:[id number] Piperacillin-Tazobactam 3 50 50 .375 gm In Dextrose/Water 1 50ml.bag @ 12.5 mls/hr IVPB Q8HR [facility] Rx#: [id number] Intake, IV Titration 10.333 72.467 Amount Morphine Sulfate 100 mg 10.333 72.467 In Sodium Chloride 0.9% 100 ml @ As Directed IV . Q0M [facility] Rx#:[id number] Oral 118 Output: Gastric Drainage 500 Urine 100 Estimated Blood Loss 20 Other: Voiding Method Indwelling Catheter Indwelling Catheter Indwelling Catheter - Exam Pt resting quitely, no s/s acute distress. Family is satisfied with pain control at this time - Labs CBC & Chem 7: 08/03/16 15:31 08/03/16 15:31 Assessment and Plan (1) Metastatic carcinoma of the bladder Narrative/Plan: Pt family had concerns for transporting her to facility closer to [place] where most of the live. Currently pain is not controlled so transport is not reasonable at this time. Further plans regarding transport or moving pt can be made based once pain is better controlled. Life expectancy is being measured in days, hospice has been consulted to follow while inpatient. All questions answered to the best of my ability Status: Acute
--- NOTE | 2016-08-05 15:09 | P.DS ---
Providers Date of admission: 08/02/16 18:42 Expected date of discharge: 08/04/16 Attending physician: Gonzales Crawford Consults: 08/03/16 13:10 Consult Physician Routine Consulting Provider: Silvino Vera Consult Reason/Comments: Metastatic bladder cancer Do you want consulting provider notified?: Yes Consult Physician Routine Consulting Provider: Hubert Boston Consult Reason/Comments: Metastatic squamous cell carcinoma, hospice Do you want consulting provider notified?: Yes 08/03/16 13:11 Consult Physician Routine Consulting Provider: Terrence Partida Consult Reason/Comments: Medical management Do you want consulting provider notified?: Yes [facility] care [facility]: Is a pleasant 7-year-old lady patient of Dr. Ericka Crawford. She has underlying history off metastatic bladder carcinoma with recent cholecystectomy on 07/26/2016 p laparoscopically, complaining of constipation and abdominal pain, she has infrequent bowel movements, she gave herself an enema 3 days ago without any results, patient has some vomitus has fecaloid material, patient denies any fever or chills patient has weakness. During her last laparoscopic cholecystectomy, there was some noticeable ascites in the perioperative 0.0 T, the gallbladder was extracted as expected with. Her toenail biopsies obtained at that area, biopsy of the. peritonium and gallbladder both showed metastatic squamous cell carcinoma with recently diagnosis of bladder cell carcinoma of squamous cell type In the emergency room CAT scan of the abdomen and pelvis shows ascites off undetermined etiology, new compared to previous exam, dilated contrast filled small bowel loops throughout the abdomen with air-fluid levels, with distal small bowel obstruction is confirmed with internal hernia at the level of the pelvis 411 patient underwent surgery by Dr. 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 Patient has also been seen by oncology and plan is for comfort care with morphine drip. Patient will be transitioned over to [facility] hospice care. Discharge diagnoses: 1. Metastatic carcinoma of the bladder 2. Bowel obstruction or ileus due to malignancy 3. COPD without any exacerbation 4. Current tobacco use 5. Pyuria without urinary tract infection 5. Family history of DVT Discharge plan: Transition to [facility] hospice care Impression and plan of care have been directed as dictated by the signing physician. Sarah Chester nurse practitioner acting as scribe for signing physician. Cc: Dr. Hawk Barnett Patient Condition at Discharge: Poor Plan - Discharge Summary Discharge Medication List Calcium Carbonate [Calcium] 1,200 mg PO DAILY 07/23/16 [History] HYDROcodone/APAP 10-325MG [[place] 10-325] 1 tab PO QID PRN 07/23/16 [History] Ibuprofen [Motrin] 800 mg PO BID PRN 08/02/16 [History] Follow up Appointment(s)/Referral(s): Hawk Barnett DO [Primary Care Provider] - 1-2 days Discharge Disposition: DC/TRNS IP HOSP W/[facility] IP READ
== END 2016-08-04 21:29 | disposition hospice, inpatient (51) | DRG 357 ==
LOC: EC 13:03 → 6SEL 18:42 → 5ONC 08-03 14:33
PROVIDERS: ADMIT Surgery; ATTEND Surgery
PROC: 0WJG0ZZ Inspection of Peritoneal Cavity, Open Approach (ICD-10-PCS; principal; 2016-08-03 07:30)
DX: C78.6 Secondary malignant neoplasm of retroperitoneum and peritoneum (principal); R18.8 Other ascites; C67.9 Malignant neoplasm of bladder, unspecified; J44.9 Chronic obstructive pulmonary disease, unspecified; Z51.5 Encounter for palliative care; Z72.0 Tobacco use; Z82.49 Family history of ischemic heart disease and other diseases of the circulatory system; Z82.5 Family history of asthma and other chronic lower respiratory diseases
CPT/HCPCS: 36415; 43753; 74020; 74176; 80048; 80053; 81001; 82150; 82271; 83605; 83690; 84484; 85025; 85610; 85730; 86850; 86900; 86901; 87040; 87086; 93005; 96361; 96365; 96366; 96375; 96376; 99285

== ENCOUNTER 2016-08-04 21:36 | Inpatient (IN) | payer OTHER ==
[2016-08-04 22:03] VITALS: BMI 22.7
[2016-08-04] MEDS: LORazepam 2 MG/ML SYRINGE IV PRN (22:55)
[2016-08-04] MEDS: SODIUM CHLORIDE 0.9% 1,000 ML IV SCH (22:57)
[2016-08-05] MEDS: MORPHINE SULFATE 100 MG in SODIUM CHLORIDE 0.9% 100 ML IV SCH ×2 (05:10→18:32)
[2016-08-05] MEDS: LORazepam 2 MG/ML SYRINGE IV PRN ×4 (08:24→21:22)
--- NOTE | 2016-08-05 19:49 | P.HPIM ---
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 Pt is admitted for hospice care and pain control. 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 Review of Systems Constitutional: Reports as per HPI Past Medical History Past Medical History: Cancer, Osteoarthritis (OA) Additional Past Medical History / Comment(s): NEW DX BLADDER CANCER, STATES RIGHT SHOULDER PAIN, BLADDER PAIN; 08/02/16 exp lap with findings suggestive of bowel cancer mets History of Any Multi-Drug Resistant Organisms: None Reported Past Surgical History: Appendectomy, Cholecystectomy, Orthopedic Surgery, Tonsillectomy, Tubal Ligation, Uterine Ablation Additional Past Surgical History / Comment(s): RIGHT SHOULDER SURGERY X7., GROWTH IN BLADDER REMOVED (JUNE 28, 2016), Past Anesthesia/Blood Transfusion Reactions: No Reported Reaction Past Psychological History: No Psychological Hx Reported Smoking Status: Former smoker Past Alcohol Use History: Occasional Additional Past Alcohol Use History / Comment(s): Patient recently quit smoking. SMOKED 1 PPD. SMOKING SINCE 17 YRS OLD. (APPROX 45 YEARS) Past Drug Use History: None Reported - Past Family History Mother Family Medical History: Deep Vein Thrombosis (DVT) Sister(s) Family Medical History: Deep Vein Thrombosis (DVT) Father Family Medical History: COPD Brother(s) Family Medical History: Unable to Obtain Daughter(s) Family Medical History: No Reported History Medications and Allergies Allergies Allergy/AdvReac Type Severity Reaction Status Date / Time No Known Allergies Allergy Verified 08/02/16 21:05 Physical Exam Vitals: Intake and Output 08/05/16 08/05/16 08/05/16 06:59 14:59 22:59 Intake Total 232 297.15 40.85 Balance 232 297.15 40.85 Intake: IV 232 234 Morphine Sulfate 100 mg 72 74 In Sodium Chloride 0.9% 100 ml @ Titrate IV .Q0M [facility] Rx#:[id number] Sodium Chloride 0.9% 1, 160 160 000 ml @ 20 mls/hr IV . Q24H [facility] Rx#:[id number] Intake, IV Titration 63.15 40.85 Amount Morphine Sulfate 100 mg 63.15 40.85 In Sodium Chloride 0.9% 100 ml @ Titrate IV .Q0M [facility] Rx#:[id number] Other: Voiding Method Indwelling Catheter Indwelling Catheter Indwelling Catheter Thin, frail female in high fowlers position, she drifts in and out of sleep, answers questions with nod of heard. Thrombosis Risk Factor Assmnt - Choose All That Apply Any of the Below Risk Factors Present?: Yes Each Factor Represents 1 point: Age 41-60 years Other Risk Factors: Yes Each Risk Factor Represents 2 Points: Major surgery, Malignancy Other congenital or acquired thrombophilia - If yes, enter type in comment: No Thrombosis Risk Factor Assessment Total Risk Factor Score: 5 Thrombosis Risk Factor Assessment Level: High Risk Assessment and Plan (1) Metastatic carcinoma of the bladder Narrative/Plan: Admitted for [facility] hospice care. Life expectancy is days. Pt is NPO due to total bowel ileus secondary to tumor burden. Morphine drip with titration for comfort , anxiety meds and comfort measures. Status: Acute
--- NOTE | 2016-08-05 19:52 | P.PN ---
Subjective Principal diagnosis: metastatic bladder carcinoma, inpatient hospice Pt appears comfortable, no s/s distress, family agrees that pt is comfortable Objective - Vital Signs Vital signs: Intake & Output 08/05/16 08/05/16 08/06/16 06:59 18:59 06:59 Intake Total 241 338.00 Balance 241 338.00 Weight 58.2 kg Intake: IV 241 234 Morphine Sulfate 100 mg 81 74 In Sodium Chloride 0.9% 100 ml @ Titrate IV .Q0M [facility] Rx#:[id number] Sodium Chloride 0.9% 1, 160 160 000 ml @ 20 mls/hr IV . Q24H [facility] Rx#:[id number] Intake, IV Titration 104.00 Amount Morphine Sulfate 100 mg 104.00 In Sodium Chloride 0.9% 100 ml @ Titrate IV .Q0M [facility] Rx#:[id number] Other: Voiding Method Indwelling Catheter Indwelling Catheter - Exam Thin, frail, NAD, respirations unlabored Assessment and Plan (1) Metastatic carcinoma of the bladder Narrative/Plan: Morphine drip with titration for comfort, continue comfort measures. Status: Acute
[2016-08-05] MEDS ORDERED: SODIUM CHLORIDE 0.9% 1,000 ML BAG ONE (22:30)
[2016-08-06] MEDS ORDERED: LORazepam 2 MG/ML SYRINGE ONE (02:00)
[2016-08-06] MEDS ORDERED: SODIUM CHLORIDE 0.9% 100 ML BAG IV ONE (02:00)
[2016-08-06] MEDS ORDERED: MORPHINE SULFATE IV ONE (02:00)
[2016-08-06] MEDS: SODIUM CHLORIDE 0.9% 1,000 ML IV SCH (06:00)
[2016-08-06] MEDS: LORazepam 2 MG/ML SYRINGE IV PRN ×3 (06:03→15:05)
--- NOTE | 2016-08-06 20:31 | P.DS ---
Providers Date of admission: 08/04/16 21:36 Expected date of discharge: 08/06/16 Attending physician: Hubert Boston Primary care physician: Hawk Barnett - Discharge Diagnosis(es) (1) Metastatic carcinoma of the bladder Status: Acute Priority: High Hospital Course: Pt admitted for [facility] hospice care, comfort. Metastatic bladder carcinoma. She is being discharged to hospice house today. Patient Condition at Discharge: Critical Plan - Discharge Summary Patient Instructions/Handouts: Hospice (DC) Activity/Diet/Wound Care/Special Instructions: Activity as tolerated NPO Standing orders for comfort medications signed by physician Discharge Disposition: DISCH TO HOSPICE MED FACILTY Pending Studies Pending Results: N/A
== END 2016-08-06 17:15 | disposition hospice, home (50) | DRG 948 ==
LOC: 5ONC 21:36
PROVIDERS: ADMIT Internal Medicine Hematology & Oncology; ATTEND Internal Medicine Hematology & Oncology
PROC: 0D9670Z Drainage of Stomach with Drainage Device, Via Natural or Artificial Opening (ICD-10-PCS; principal; 2016-08-04)
DX: G89.3 Neoplasm related pain (acute) (chronic) (principal); C78.80 Secondary malignant neoplasm of unspecified digestive organ; K56.0 Paralytic ileus; C67.9 Malignant neoplasm of bladder, unspecified; Z66 Do not resuscitate; Z51.5 Encounter for palliative care; F41.9 Anxiety disorder, unspecified; M19.91 Primary osteoarthritis, unspecified site; Z87.891 Personal history of nicotine dependence; Z90.49 Acquired absence of other specified parts of digestive tract